=== PATIENT | female | born 1990 | race Caucasian/White ===

== ENCOUNTER 2017-04-06 07:54 | Emergency (ER) | payer OTHER, SELFPAY ==
[2017-04-06 07:59] VITALS: BP 106/66; PULSE 93; RESP 18; O2SAT 99; BMI 19.1
[2017-04-06 08:28] LABS: Microscopic, Urine URINE MICROSCOPIC (MICROSCOPIC)
[2017-04-06 08:34] LABS: Appearance,Urine CLEAR (Clear); Bilirubin,Urine Negative (Negative); Blood, Urine 3+ (Negative); Color,Urine YELLOW (Yellow); Glucose,Urine (UA) Negative (Negative); Ketones,Urine Negative (Negative); Leukocyte Esterase,Urine 1+ (Negative); Nitrate,Urine Negative (Negative); PH,Urine 6.5 (5.0-8.5); Protein,Urine 2+ (Negative); Specific Gravity, Urine 1.025 (1.005-1.030); Urobilinogen,Urine 0.2 EU/dl (0.2)
[2017-04-06 08:34] LABS: Basophils # 0.1 K/mm3 (0-0.2); Basophils % 0.6 % (0.1-2.0); Eosinophils # 0.2 K/mm3 (0.0-0.4); Eosinophils % 1.6 % (0.1-12.0); Hematocrit 38.7 % (37.0-47.0); Hemoglobin 12.7 g/dL (12.2-16.2); Lymphocytes # 1.8 K/mm3 (0.7-4.5); Lymphocytes % 19.5 K/mm3 (10-50); Mean Corpuscular HGB Conc 32.7 g/dL (31.8-35.4); Mean Corpuscular Hemoglobin 29.3 pg (27.0-31.2); Mean Corpuscular Volume 89.6 fl (81-99); Monocytes # 0.5 K/mm3 (0.1-1.0); Monocytes % 5.2 % (1.7-9.3); Neutrophils # 6.7 K/mm3 (1.8-7.8); Platelet Count 270 K/mm3 (142-424); Red Blood Count 4.32 M/mm3 (4.20-5.40); Red Cell Distribution Width 13.1 % (11.5-17.5); White Blood Count 9.1 K/mm3 (4.8-10.8)
[2017-04-06 08:43] LABS: Bacteria,Urine 2+ /lpf; Squamous Epithelial Cell,Urine 20-50 #/hpf (0-5)
[2017-04-06 08:53] LABS: Alanine Aminotransferase 24 U/L (12-78); Albumin Level 4.2 gm/dL (3.4-5.0); Albumin/Globulin Ratio 1.2 (1.1-1.8); Alkaline Phosphatase 68 U/L (46-116); Anion Gap 10.8 mEq/L (5-15); Aspartate Amino Transferase 13 U/L (15-37); Bilirubin,Total 0.2 mg/dL (0.2-1.0); Blood Urea Nitrogen 6 mg/dL (7-18); Calcium 8.7 mg/dL (8.5-10.1); Carbon Dioxide 30 mmol/L (21.0-32.0); Chloride 105 mmol/L (98-107); Creatinine Clearance Estimated 133 mL/min (0-300); Creatinine,Serum 0.49 mg/dL (0.55-1.02); Estimated Glomerular Filt Rate 151 ml/min (>60); GFR (African American) 183 ML/MIN (>60); Globulin 3.4 gm/dl (1.3-3.2); Glucose 90 mg/dL (74-106); Potassium 3.8 mmoL/L (3.5-5.1); Sodium 142 mmol/L (136-145); Total Protein,Serum 7.6 gm/dL (6.4-8.2)
--- NOTE | 2017-04-06 08:57 | US_ITS ---
US OB transvaginal: INDICATION: ITS.REASON: first trimesteric bleeding. ORDERING PHYSICIAN: Kaci Edmond MD PATIENT AGE: 26 years TECHNIQUE: ultrasound transabdominal scanning. COMPARISON: No previous relevant studies. FINDINGS: Uterus is retroverted. There is a intrauterine gestational sac which measures 2 cm. A small yolk sac is present however, a pole was not identified. According to the gestational sac size, average ultrasound age would be approximately 6 weeks 6 days. One would expect to see a pole at this time. Gestational sac has some irregularity is well. Right ovary is 4.3 x 2.2 cm and left ovary is 4.2 x 2 cm. There is a small amount fluid in the cul-de-sac. IMPRESSION: 1. No viable intrauterine gestation apparent. 2. Empty gestational sac containing a small yolk sac but NO pole consistent with blighted ovum.
--- NOTE | 2017-04-06 08:58 | HMH.EDUROGF ---
ED Disposition Clinical Impression: First trimester UTI (urinary tract infection) Qualifiers: Indwelling urinary catheter type: unspecified Encounter type: initial encounter Disposition: Home, Self-Care Condition on Discharge: Good Additional Instructions: I discussed with the patient's the above findings including her labs and ultrasound results. She is agreeable to see Dr. Donald immediately after the ED visit. She departed the ED in a hemodynamically stable condition. - Critical Care Critical Care Time: No Attestation: On 04/06/17, the high probability of a clinically significant, sudden or life threatening deterioration of the following system(s) required my full and direct attention, intervention and personal management. The time I documented below is in addition to time spent performing reported procedures but includes the following listed in this critical care notation. Medical Decision Making - Medical Records Medical records reviewed: Yes: I reviewed the patient's medical records. Vital Signs: 04/06/17 07:59 Pulse Rate [Right Brachial] 93 H Respiratory Rate 18 Blood Pressure [Right Arm] 106/66 Blood Pressure Mean [Right Arm] 79 Blood Pressure Source [Right Arm] Automatic Cuff Blood Pressure Position [Right Arm] Sitting 02 Sat by Pulse Oximetry 99 Oxygen Delivery Method Room Air - Lab Data Lab results reviewed: Yes: I reviewed the patient's lab results. Lab Results 04/06/17 08:20: WBC 9.1, RBC 4.32, Hgb 12.7, Hct 38.7, MCV 89.6, MCH 29.3, MCHC 32.7, RDW 13.1, Plt Count 270, MPV 7.0 L, Neut % (Auto) 73.0, Lymph % (Auto) 19.5, [place] % (Auto) 5.2, Eos % (Auto) 1.6, Baso % (Auto) 0.6, Neut # (Auto) 6.7, Lymph # (Auto) 1.8, [place] # (Auto) 0.5, Eos # (Auto) 0.2, Baso # (Auto) 0.1 04/06/17 08:20: Serum HCG, Qual Positive 04/06/17 08:20: Sodium 142, Potassium 3.8, Chloride 105, Carbon Dioxide 30, Anion Gap 10.8, BUN 6 L, Creatinine 0.49 L, Estimated Creat Clear 133, Estimated GFR 151, Est GFR ( Amer) 183, Glucose 90, Calcium 8.7, Total Bilirubin 0.2, AST 13 L, ALT 24, Alkaline Phosphatase 68, Total Protein 7.6, Albumin 4.2, Globulin 3.4 H, Albumin/Globulin Ratio 1.2 04/06/17 08:20: Blood Type O Negative 04/06/17 08:25: Urine Color Yellow, Urine Appearance Clear, Urine pH 6.5, Ur Specific [place] 1.025, Urine Protein 2+, Urine Glucose (UA) Negative, Urine Ketones Negative, Urine Blood 3+, Urine Nitrate Negative, Urine Bilirubin Negative, Urine Urobilinogen 0.2, Ur Leukocyte Esterase 1+ A, Urine RBC 3-5, Urine WBC 5-10, Ur Squamous Epith Cells 20-50, Urine Bacteria 2+ Result diagrams: 04/06/17 08:20 04/06/17 08:20 Orders (Tests/Meds): ED MEDICATIONS Generic Name Dose Route Start Last Admin Trade Name Freq PRN Reason Stop Dose Admin Sodium Chloride 1,000 mls @ 999 mls/hr 04/06/17 09:00 Sod Chloride 0.9% 1000ml Bag IV 04/06/17 10:00 .Q1H1M MINA Discontinued Medications Generic Name Dose Route Start Last Admin Trade Name Freq PRN Reason Stop Dose Admin Nitrofurantoin Macrocrystals 100 mg 04/06/17 09:04 Macrodantin 100mg Capsule PO 04/06/17 09:05 ONCE ONE ORDERS Category Date Time Status US OB <= 14 weeks fetus Stat Exams 04/06/17 08:57 Ordered Beta HCG, Quant [HCG,Quantitative] Stat Lab 04/06/17 09:29 Ordered Urine Culture Stat Micro 04/06/17 08:25 Received - Matthias Inquiry Pt receiving controlled substance: No Matthias was queried for this patient: No Medical Decision Making Narrative: Reviewing the patient labs I called Dr. Mariano Donald at the [facility] who informed me that he can see her immediately after the end of the ED visit. The ultrasound did not show heart rate . Dr. Allen believes that the did terminate she will need D&C. Will hold off using antibiotics for UTI until she is seen by him. Female Urogenital HPI - General Chief complaint: Vaginal Bleeding Stated complaint: approx 10 weeks
[2017-04-06 08:59] LABS: HCG Qualitative, Serum Positive (Negative)
--- NOTE | 2017-04-06 09:02 | ED_ITS ---
ED Disposition Clinical Impression: First trimester UTI (urinary tract infection) Qualifiers: Indwelling urinary catheter type: unspecified Encounter type: initial encounter Disposition: Home, Self-Care Condition on Discharge: Good Additional Instructions: I discussed with the patient's the above findings including her labs and ultrasound results. She is agreeable to see Dr. Donald immediately after the ED visit. She departed the ED in a hemodynamically stable condition. - Critical Care Critical Care Time: No Attestation: On 04/06/17, the high probability of a clinically significant, sudden or life threatening deterioration of the following system(s) required my full and direct attention, intervention and personal management. The time I documented below is in addition to time spent performing reported procedures but includes the following listed in this critical care notation. Medical Decision Making - Medical Records Medical records reviewed: Yes: I reviewed the patient's medical records. Vital Signs: 04/06/17 07:59 Pulse Rate [Right Brachial] 93 H Respiratory Rate 18 Blood Pressure [Right Arm] 106/66 Blood Pressure Mean [Right Arm] 79 Blood Pressure Source [Right Arm] Automatic Cuff Blood Pressure Position [Right Arm] Sitting 02 Sat by Pulse Oximetry 99 Oxygen Delivery Method Room Air - Lab Data Lab results reviewed: Yes: I reviewed the patient's lab results. Lab Results 04/06/17 08:20: WBC 9.1, RBC 4.32, Hgb 12.7, Hct 38.7, MCV 89.6, MCH 29.3, MCHC 32.7, RDW 13.1, Plt Count 270, MPV 7.0 L, Neut % (Auto) 73.0, Lymph % (Auto) 19.5, [place] % (Auto) 5.2, Eos % (Auto) 1.6, Baso % (Auto) 0.6, Neut # (Auto) 6.7 , Lymph # (Auto) 1.8, [place] # (Auto) 0.5, Eos # (Auto) 0.2, Baso # (Auto) 0.1 04/06/17 08:20: Serum HCG, Qual Positive 04/06/17 08:20: Sodium 142, Potassium 3.8, Chloride 105, Carbon Dioxide 30, Anion Gap 10.8, BUN 6 L, Creatinine 0.49 L, Estimated Creat Clear 133, Estimated GFR 151, Est GFR ( Amer) 183, Glucose 90, Calcium 8.7, Total Bilirubin 0.2, AST 13 L, ALT 24, Alkaline Phosphatase 68, Total Protein 7.6, Albumin 4.2, Globulin 3.4 H, Albumin/Globulin Ratio 1.2 04/06/17 08:20: Blood Type O Negative 04/06/17 08:25: Urine Color Yellow, Urine Appearance Clear, Urine pH 6.5, Ur Specific [place] 1.025, Urine Protein 2+, Urine Glucose (UA) Negative, Urine Ketones Negative, Urine Blood 3+, Urine Nitrate Negative, Urine Bilirubin Negative, Urine Urobilinogen 0.2, Ur Leukocyte Esterase 1+ A, Urine RBC 3-5, Urine WBC 5-10, Ur Squamous Epith Cells 20-50, Urine Bacteria 2+ Result diagrams: 04/06/17 08:20 04/06/17 08:20 Orders (Tests/Meds): ED MEDICATIONS Generic Name Dose Route Start Last Admin Trade Name Freq PRN Reason Stop Dose Admin Sodium Chloride 1,000 mls @ 999 mls/hr 04/06/17 09:00 Sod Chloride 0.9% 1000ml Bag IV 04/06/17 10:00 .Q1H1M MINA Discontinued Medications Generic Name Dose Route Start Last Admin Trade Name Freq PRN Reason Stop Dose Admin Nitrofurantoin Macrocrystals 100 mg 04/06/17 09:04 Macrodantin 100mg Capsule PO 04/06/17 09:05 ONCE ONE ORDERS Category Date Time Status US OB <= 14 weeks fetus Stat Exams 04/06/17 08:57 Ordered Beta HCG, Quant [HCG,Quantitative] Stat Lab 04/06/17 09:29 Ordered Urine Culture Stat Micro 04/06/17 08:25 Received
[2017-04-06 10:14] LABS: HCG,Quantitative 16503 mIU/mL
[2017-04-06 10:27] VITALS: BP 102/71; PULSE 69; RESP 18; O2SAT 97
== END 2017-04-06 10:29 | disposition home or self-care (01) ==
PROVIDERS: Emergency Provider Emergency Medicine
DX: O03.4 Incomplete spontaneous abortion without complication (principal); N39.0 Urinary tract infection, site not specified; Z88.0 Allergy status to penicillin; F17.210 Nicotine dependence, cigarettes, uncomplicated
CPT/HCPCS: 76830; 80053; 81001; 84702; 84703; 85025; 86900; 86901; 87086; 96365; 99284

== ENCOUNTER 2017-04-07 09:24 | Day surgery (SDC) | payer OTHER, SELFPAY ==
[2017-04-06 13:02] VITALS: BMI 19.8
[2017-04-07] VITALS (10 sets, daily range): BP systolic 99–112; BP diastolic 53–80; PULSE 63–81; RESP 16–20; TEMP 36.2–37; O2SAT 91–100
--- NOTE | 2017-04-07 10:48 | P.PN_ITS ---
[facility] Anesthesia Checklist - Patient Identification Patient Identification: Arm Band, Verbal (Name & ) - Structural Data Admitted From: Home Planned Operative Procedure/s: d and e Consent for Planned Operative Procedure(s) Verified: Yes Verified Documents: Surgical Consent - Chart Verification Results Verified: CBC, BMP - Additional verifications Patient : No Anesthesia Reactions: No Hx Blood Transfusions: No Blood Transfusion Reaction: No Cephalosporin Allergy: No Previous Colonoscopy: No - Cardiovascular Assessment Heart Sounds: S1 & S2 Pulse Strength: Baseline Pulse Rhythm: Regular Peripheral Edema: No - Airway Assessment C-Spine Mobility Assessed: Yes TMJ Mobility Assessed: Yes Dentition: Good Dentition - Neurological Assessment Level of Consciousness: Awake, Alert, Appropriate Hx Seizures: No Numbness or tingling in extremities: No - Anesthesia Plan Anesthesia Risk discussed: Yes ASA Class: I Anesthesia Type: General [facility] Anesthesia HX I have reviewed the patient's past medical history: Yes Medical History: Denies:: Cancer, Diabetes Mellitus Type 1, Diabetes Mellitus Type 2, MRSA Other Medical History: Denies: Blood Transfusion Reaction Amputation: No Fractures: No *Family Hx:: Hyperlipidemia, Hypertension, Stroke
--- NOTE | 2017-04-07 11:41 | P.OP_ITS ---
Date of procedure: 04/07/17 Pre-op Diagnosis:: Missed Post-op diagnosis:: same Procedure performed:: Dilation and evacuation with Hari suction Surgeon:: Mariano Allen MD WEBFOCUS DEVELOPER:: Jarrod Goodman Anesthesia: LMA Estimated blood loss (mL): 100 Clinical Note:: She is a 26-year-old 2 para 1 who is about 8 weeks gestational age. She had some spotting and was seen in the ER yesterday. And showed that she had a nonviable 8 week size fetus. As result of that she was offered dilation and evacuation with [place] suction. The risks and benefits of surgery were discussed with the patient prior to surgery. Operative findings:: She had an anteverted bulky uterus consistent with her gestational age. Operative note:: She was taken to the operating room where LMA anesthesia was found be adequate. She was prepped and draped in normal sterile fashion in the lithotomy position. A weighted speculum was placed in the vagina and the anterior lip of the cervix was grasped with a tenaculum. The cervix was dilated to 9 mm. Using a curved 9 mm [place] curette I evacuated the uterine contents. This is followed by gentle curettage. The patient tolerated the procedure well and was taken to the recovery room in excellent condition. All sponge and instrument counts were correct. The estimated blood loss was approximately 100 cc. Pathology: other Condition: stable Disposition: PACU Specimens:: Products of conception Complications:: None
--- NOTE | 2017-04-07 11:49 | HMH.ANESI ---
[facility] Anesthesia Record Part I Intake, IV Amount: 400 Estimated blood loss (mL): 100 Urine output (mL): 50 Blood Products used (#): none Blood Pressure: 99/58 SaO2: 91 Pulse Rate: 67 Respiratory Rate: 16 Temperature: 97.4 F Patient is:: Mask O2, Stable, Somnolent Stable to PACU at:: 11:48
--- NOTE | 2017-04-07 11:50 | HMH.ANESII ---
[facility] Anesthesia Record Part II Discharge Time: 12:18 Destination: Surgical Day Care (OP Surgery) PACU nurse assessment reviewed?: Yes Patient Condition:: Good Anesthesia Complications:: None
--- NOTE | 2017-04-07 11:59 | PC.NURSE ---
1148-REPORT RECEIVED FROM THONY HEADLEY/ADANRN
--- NOTE | 2017-04-07 12:19 | PC.NURSE ---
1215-DETAILED REPORT CALLED TO BETITO CORDON. PT EATING ORANGE POPSICLE W/OUT DIFFICULTY. DENIES NAUSEA OR PAIN. 1218-PT TRANSPORTED TO POST OP VIA STRETCHER W/RAILS UP AND LEFT IN CARE OF BETITO CORDON. BED LOCKED IN LOWEST POSITION. VSS. PT STABLE.
== END 2017-04-07 12:59 | disposition home or self-care (01) ==
LOC: OR 09:25
PROVIDERS: Visit Provider Nurse Practitioner Obstetrics & Gynecology
PROC: (CPT 59820; principal; 2017-04-07 11:00)
DX: O02.1 Missed abortion (principal)
CPT/HCPCS: 59820; 96374; J2405

== ENCOUNTER → 2017-10-20 10:14 | Outpatient (CLI) | payer OTHER, SELFPAY ==
[2017-10-20 10:41] LABS: Basophils % 0.4 % (0.1-2.0); Eosinophils # 0.2 K/mm3 (0.0-0.4); Hematocrit 34.7 % (37.0-47.0); Hemoglobin 11.5 g/dL (12.2-16.2); Lymphocytes # 2.2 K/mm3 (0.7-4.5); Mean Corpuscular HGB Conc 33.1 g/dL (31.8-35.4); Mean Corpuscular Hemoglobin 30.3 pg (27.0-31.2); Mean Corpuscular Volume 91.5 fl (81-99); Mean Platelet Volume 7.1 fl (7.4-10.4); Monocytes # 0.3 K/mm3 (0.1-1.0); Monocytes % 3.5 % (1.7-9.3); Neutrophils # 6.4 K/mm3 (1.8-7.8); Neutrophils % 70.1 % (37.0-80.0); Platelet Count 242 K/mm3 (142-424); White Blood Count 9.2 K/mm3 (4.8-10.8)
[2017-10-21 10:14] LABS: HIV Screen 4th Generation wRfx Non Reactive (Non Reactive); Hepatitis B Surface Antigen Negative (Negative); Hepatitis C Antibody 0.1 s/co ratio (0.0-0.9); Rubella Antibodies, IgG 1.48 index (Immune >0.99)
[2017-10-22 09:09] LABS: Rapid Plasma Reagin Ab Titer Non Reactive (NonRea<1:1)
== END ==
PROVIDERS: PCP Nurse Practitioner Family; Visit Provider Nurse Practitioner Obstetrics & Gynecology
DX: Z34.90 Encounter for supervision of normal pregnancy, unspecified, unspecified trimester (principal)
CPT/HCPCS: 36415; 85025; 86592; 86703; 86762; 86850; 87340; 87380; G0432

== ENCOUNTER → 2017-10-27 10:52 | Outpatient (CLI) | payer OTHER, SELFPAY ==
--- NOTE | 2017-10-27 10:57 | US_ITS ---
US OB /maternal detail: INDICATION: ITS.REASON: US OB- Dates- TRANSABDOMINAL- pt measuring 16 wks ORDERING PHYSICIAN: Mariano Allen MD PATIENT AGE: 27 years TECHNIQUE: ultrasound transabdominal scanning. COMPARISON: No previous relevant studies. FINDINGS: Single viable intrauterine gestation. Breech position. The placenta is anterior. No evidence of previa or production. There is heterogeneous decreased echogenicity along the superficial surface of the placenta. This is of questioned clinical significance. Multiple placental lakes are present as well. Consider follow-up to confirm integrity of the placenta. There is average amount fluid. The cervix appears satisfactory. Closed and measuring 3 cm in length. Complete survey performed and was unremarkable on the submitted images as in PACS. No discrete anomalies identified on survey imaging by technologist. Active fetus. Three-vessel cord with satisfactory umbilical cord insertion. 4- chamber heart noted. Survey of brain & ventricles. Face and neck survey unremarkable. Diaphragm and chest views unremarkable. Abdomen: Both kidneys noted and unremarkable. Stomach noted and satisfactory. Spine: Survey of the spine satisfactory with no anomalies identified nor imaged. Both arms and legs noted. Amniotic Fluid: Adequate. Maternal adnexa: No significant findings. Measurements: Average ultrasound age 20w2d. Gestational Age unknown. Estimated due date by ultrasound age 0103/14/2018. Estimated weight 324 grams. BPD = 20w5d OFD = 20w6d HC = 20w0d AC = 20w2d FL = 19w5d Growth Percentile= not calculated due to unknown established due date Heart Rate = 150 Cerebellum = 20w2d Humerus = 20w2d HC/AC is 1.17. CI is 78%. FL/BPD is 64%. FL/AC is 21%. IMPRESSION: Single live fetus in breech presentation with an average ultrasound age of 20 weeks and 2 days. No obvious anomalies. All parameters correlate. Placenta is anterior with heterogeneous echogenicity along its superficial surface and placental lakes. Consider follow-up to confirm stability.
== END ==
PROVIDERS: PCP Nurse Practitioner Family; Visit Provider Nurse Practitioner Obstetrics & Gynecology
DX: O26.841 Uterine size-date discrepancy, first trimester (principal)
CPT/HCPCS: 76811

== ENCOUNTER 2017-12-24 08:43 | Outpatient (CLI) | payer OTHER, SELFPAY | END 2017-12-24 12:00 | disposition home or self-care (01) | LOC: LAB 08:45 → ACC 11:34 → INF 11:42 | PROVIDERS: PCP Nurse Practitioner Obstetrics & Gynecology; Visit Provider Nurse Practitioner Obstetrics & Gynecology | DX: O09.899 Supervision of other high risk pregnancies, unspecified trimester (principal); Z34.90 Encounter for supervision of normal pregnancy, unspecified, unspecified trimester; Z67.91 Unspecified blood type, Rh negative | CPT/HCPCS: 36415; 96372; J2790 ==

== ENCOUNTER → 2018-02-11 09:52 | Outpatient (CLI) | payer OTHER, SELFPAY ==
--- NOTE | 2018-02-11 09:53 | US_ITS ---
US OB biophysical profile, U S OB follow up, US SD Ratio umbilcal artery: Indication: Small for gestational age ITS.REASON: US OB BPP Growth- SGA ORDERING PHYSICIAN: Mariano Allen MD PATIENT AGE: 27 years FINDINGS: The following parameters are obtained: Average ultrasound age is 34w2d. Estimated due date by ultrasound is 03/23/2018. Estimated weight is 2283. This is 10 percentile. BPD: 35w4d OFD: 34w3d HC: 34w4d AC: 34w0d FL: 32w5d heart rate: 138 bpm. HC/AC: 1.03 (0.93-1.11) Cephalic index: 82% (70-86%) FL/BPD: 72% (71-87%) FL/AC: 21% (20-24%) Amniotic fluid index: 14 cm Qualitative AFV: 2 breathing movements: 2 Gross body movements: 2 Tone: 2 Biophysical profile score: 8/8 Doppler evaluation of the umbilical artery: SD ratio: 2.7 Resistive index: 0.63 No obvious anomalies evident. Placenta: Anterior, GR 2-3 Cervix: Appears closed and measures 3 cm IMPRESSION: There is a single live fetus present which is in the [place] presentation with average ultrasound age of 34 weeks 2 days and an estimated weight 2283 g is 10th percentile. Biophysical profile 8/8. Normal amniotic fluid index of 14 cm. Unremarkable Doppler evaluation of the umbilical artery
== END ==
PROVIDERS: PCP Nurse Practitioner Obstetrics & Gynecology; Visit Provider Nurse Practitioner Obstetrics & Gynecology
DX: O36.5131 Maternal care for known or suspected placental insufficiency, third trimester, fetus 1 (principal)
CPT/HCPCS: 76816; 76819; 76820

== ENCOUNTER → 2018-02-17 16:54 | Outpatient (CLI) | payer OTHER, SELFPAY ==
[2018-02-17 19:41] LABS: Amphetamine/Metha Screen,Urine Negative ng/mL (<1000); Barbiturates Screen,Urine Negative ng/mL (<200); Benzodiazepines Screen,Urine Negative ng/mL (<200); Cannabinoid Screen,Urine Negative ng/mL (<50); Cocaine Screen,Urine Negative ng/mL (<300); Methadone Screen,Urine Negative ng/mL (<300); Opiate Screen,Urine Negative ng/mL (<300); Phencyclidine Screen,Urine Negative ng/mL (<25)
[2018-02-19 18:38] LABS: Buprenorphine, Urine Negative ng/mL (Cutoff=10)
== END ==
PROVIDERS: Visit Provider Nurse Practitioner Obstetrics & Gynecology
DX: Z34.90 Encounter for supervision of normal pregnancy, unspecified, unspecified trimester (principal)
CPT/HCPCS: 80305; 80307; 86403

== ENCOUNTER 2018-03-21 07:24 | Inpatient (IN) ==
[2018-03-21 08:44] LABS: Basophils # 0.1 K/mm3 (0-0.2); Basophils % 0.5 % (0.1-2.0); Eosinophils # 0.2 K/mm3 (0.0-0.4); Eosinophils % 1.5 % (0.1-12.0); Hematocrit 33.3 % (37.0-47.0); Hemoglobin 11.2 g/dL (12.2-16.2); Lymphocytes # 2.8 K/mm3 (0.7-4.5); Mean Corpuscular HGB Conc 33.6 g/dL (31.8-35.4); Mean Corpuscular Volume 92.3 fl (81-99); Monocytes # 0.6 K/mm3 (0.1-1.0); Monocytes % 4.5 % (1.7-9.3); Neutrophils # 9.8 K/mm3 (1.8-7.8); Neutrophils % 72.5 % (37.0-80.0); Platelet Count 290 K/mm3 (142-424); Red Blood Count 3.61 M/mm3 (4.20-5.40); Red Cell Distribution Width 13.4 % (11.5-17.5); White Blood Count 13.5 K/mm3 (4.8-10.8)
[2018-03-21 10:23] LABS: Microscopic, Urine URINE MICROSCOPIC (MICROSCOPIC)
[2018-03-21 10:29] LABS: Appearance,Urine CLOUDY (Clear); Bilirubin,Urine Negative (Negative); Blood, Urine 2+ (Negative); Color,Urine YELLOW (Yellow); Glucose,Urine (UA) Negative (Negative); Ketones,Urine Negative (Negative); Leukocyte Esterase,Urine TRACE (Negative); Protein,Urine Negative (Negative); Urobilinogen,Urine 0.2 EU/dl (0.2)
[2018-03-21 10:33] LABS: Amphetamine/Metha Screen,Urine Negative ng/mL (<1000); Barbiturates Screen,Urine Negative ng/mL (<200); Benzodiazepines Screen,Urine Negative ng/mL (<200); Cannabinoid Screen,Urine Negative ng/mL (<50); Cocaine Screen,Urine Negative ng/mL (<300); Methadone Screen,Urine Negative ng/mL (<300); Opiate Screen,Urine Negative ng/mL (<300); Phencyclidine Screen,Urine Negative ng/mL (<25)
[2018-03-21 10:37] LABS: Bacteria,Urine 3+ /lpf; Mucus,Urine 2+ /lpf
--- NOTE | 2018-03-21 15:08 | Progress Note ---
[facility] Anesthesia Checklist - Patient Identification Patient Identification: Arm Band - Structural Data Admitted From: Home Planned Operative Procedure/s: labor epidural Consent for Planned Operative Procedure(s) Verified: Yes Verified Documents: Surgical Consent, History and Physical - NPO Status Verified Time NPO: 00:00 - Additional verifications Anesthesia Reactions: No - Airway Assessment C-Spine Mobility Assessed: Yes (mp2) TMJ Mobility Assessed: Yes Dentition: Good Dentition - Neurological Assessment Level of Consciousness: Awake, Alert - Anesthesia Plan Anesthesia Risk discussed: Yes Anesthesia Plan: Verified ASA Class: II Anesthesia Type: Epidural [facility] History I have reviewed the patient's past medical history: Yes Medical History: Denies:: Cancer, Diabetes Mellitus Type 1, Diabetes Mellitus Type 2, MRSA, Seizures Have you ever received a pneumonia vaccine?: No Have you received a flu vaccine this season?: No Other Medical History: Denies: Blood Transfusion Reaction Other Surgeries: No: Amputation: No Fractures: No - *Social History Smoking Status: Current every day smoker Tobacco Type: cigarettes Alcohol Intake: never Substance Use Type: denies use Occupational Status: other *Family Hx:: Hypertension, Hyperlipidemia, Stroke Para: 1
--- NOTE | 2018-03-21 15:59 | History & Physical Report ---
OB - H&P: HPI Antepartum - History of Present Illness Chief complaint: Rupture of membranes History of present illness: 27 yo @ 41 wks presented with SROM around 8am. Irregular contractions but no vaginal bleeding. Normal movement. complicated by tobacco abuse, IUGR 10%, grade 2-3 placenta and Rh negative maternal status. [facility] History I have reviewed the patient's past medical history: Yes Medical History: Denies:: Cancer, Diabetes Mellitus Type 1, Diabetes Mellitus Type 2, MRSA Have you ever received a pneumonia vaccine?: No Have you received a flu vaccine this season?: No Other Surgeries: No: Amputation: No Fractures: No - *Social History Smoking Status: Current every day smoker Tobacco Type: cigarettes Alcohol Intake: never Substance Use Type: denies use Occupational Status: other *Family Hx:: Hypertension, Hyperlipidemia, Stroke Para: 1 Review of Systems - Review of Systems CONSTITUTIONAL: no fever/chills HEENT: no oral lesions PULMONARY: no shortness of breath or difficulty breathing CV: no racing heart, palpitations or chest pain ABD: no abdominal pain, N/V : + leakage of fluid and irregular contractions SKIN: no new rash or skin lesions EXT: no edema NEURO: no mental status changes PSYCH: no current anxiety/depression Meds Home Medications Medication Instructions Recorded Confirmed Type No Known Home Medications 03/21/18 03/21/18 History Allergies Allergy/AdvReac Type Severity Reaction Status Date / Time Penicillins Allergy Verified 03/18/18 11:20 OB - H&P: Exam - Physical Exam Vital signs: Temp Pulse Resp BP Pulse Ox 98.2 F 90 24 120/73 100 03/21/18 07:49 03/21/18 07:49 03/21/18 07:49 03/21/18 07:49 03/21/18 07:49 Narrative: CONSTITUTIONAL: no acute distress HEENT: mucous membranes moist PULMONARY: breathing unlabored without audible wheezes CV: no tachycardia or visible JVD; normal LE peripheral pulses ABD: soft, NT/ND, no guarding. Gravid uterus. : cervix 2/50/-2 SKIN: no visible rash or lesions HEME: no lymphadenopathy EXT: 1+ edema LEs NEURO: alert/oriented, no altered mental status PSYCH: appropriate mood and demeanor without visible anxiety/depression NST: Basline: 150 Variability: moderate Accelerations: yes Decelerations: no Impression: Reactive, Category 1 OB - Results - Labs Labs: Short CBC 03/21/18 Range/Units 08:25 WBC 13.5 H (4.8-10.8) K/mm3 Hgb 11.2 L (12.2-16.2) g/dL Hct 33.3 L (37.0-47.0) % Plt Count 290 (142-424) K/mm3 Urine 03/21/18 Range/Units 10:09 Urine Color Yellow (Yellow) Urine Appearance Cloudy (Clear) Urine pH 7.0 (5.0-8.5) Ur Specific [place] 1.020 (1.005-1.030) Urine Protein Negative (Negative) Urine Glucose (UA) Negative (Negative) OB - A/P Antepartum (1) Post-dates Current visit: Yes Status: Acute (2) Spontaneous rupture of membranes Current visit: Yes Status: Acute (3) IUGR (intrauterine growth restriction) Problem details: 10% Current visit: No Status: Acute (4) Abnormal placental ultrasound Problem details: Grade 2/3 Current visit: No Status: Acute (5) Rh negative status during Current visit: No Status: Acute (6) Tobacco smoking complicating Current visit: No Status: Acute - Additional Plan Additional Information:: Admit to Labor and Delivery Pitocin augmentation as needed Epidural for pain management at patient request Continuous monitoring Anticipate
--- NOTE | 2018-03-21 16:38 | Procedure Note ---
- Delivery Note Delivery Date:: 03/21/18 Delivery Time:: 16:34 Anesthesia Type: Epidural Was labor medically induced?: No Gestational age (weeks): 41 Infant delivered prior to 39 weeks?: No Gender: Female at 1 minute: 7 at 5 minutes: 9 LAC or MLE?: LAC (1st degree perineal, right periurethral) Delivery Procedure:: Spontaneous vaginal delivery of vigorous liveborn female infant over intact perineum. Apgars: 7 & 9 Delivery uncomplicated; no nuchal cord or shoulder dystocia with delivery placed immediately on maternal abdomen for nursing assessment & LINDSAY immediately after umbilical cord clamped/cut Placenta spontaneously expressed and examined; noted to be complete/intact Vulva, vagina, and cervix inspected; 1st degree perineal laceration reapproximated with 2-0 vicryl. Right periurethral laceration hemostatic; no repair. EBL: 300cc All sponge/needle/instrument counts correct at conclusion of procedure Disposition: Mom/baby stable to recovery in LDRP Placental Delivery Description: Spontaneous
[2018-03-21 21:12] VITALS: BP 115/77
[2018-03-22 06:02] LABS: Hematocrit 33.2 % (37.0-47.0); Hemoglobin 10.9 g/dL (12.2-16.2)
--- NOTE | 2018-03-22 06:22 | Progress Note ---
Internal Medicine - PN: Subj *Date: 03/22/18 *Time: 06:21 Interval history: This is day #1. The patient is afebrile. Vital signs stable. Abdomen soft. Lochia normal. Uterine fundus involuting well. Perineum normal. Nursing well. Impression: Stable. Exam Vital signs and Labs for Last 24 Hours: Temp Pulse Resp BP Pulse Ox 97.5 F L 67 18 115/77 98 03/21/18 19:49 03/21/18 19:49 03/21/18 19:49 03/21/18 19:49 03/21/18 19:49 Laboratory Results - last 24 hr 03/21/18 07:40: Membrane Rupture Positive A 03/21/18 08:25: WBC 13.5 H, RBC 3.61 L, Hgb 11.2 L, Hct 33.3 L, MCV 92.3, MCH 31.0, MCHC 33.6, RDW 13.4, Plt Count 290, MPV 7.0 L, Neut % (Auto) 72.5, Lymph % (Auto) 21.0, [place] % (Auto) 4.5, Eos % (Auto) 1.5, Baso % (Auto) 0.5, Neut # (Auto) 9.8 H, Lymph # (Auto) 2.8, [place] # (Auto) 0.6, Eos # (Auto) 0.2, Baso # (Auto) 0.1 03/21/18 08:25: Blood Type O Negative, Antibody Screen Negative 03/21/18 10:09: Urine Opiates Screen Negative, Urine Methadone Screen Negative, Ur Barbituates Screen Negative, Ur Phencyclidine Scrn Negative, Ur Amphetamines Screen Negative, U Benzodiazepines Scrn Negative, Urine Cocaine Screen Negative, U Marijuana (THC) Screen Negative 03/21/18 10:09: Urine Color Yellow, Urine Appearance Cloudy, Urine pH 7.0, Ur Specific [place] 1.020, Urine Protein Negative, Urine Glucose (UA) Negative, Urine Ketones Negative, Urine Blood 2+, Urine Nitrate Negative, Urine Bilirubin Negative, Urine Urobilinogen 0.2, Ur Leukocyte Esterase Trace, Urine WBC 5-10, Ur Squamous Epith Cells 3-5, Urine Bacteria 3+, Urine Mucus 2+ 03/22/18 05:40: Hgb 10.9 L, Hct 33.2 L I & O for Last 24 hours: Intake & Output 03/19/18 03/20/18 03/21/18 03/22/18 11:59 11:59 11:59 11:59 Weight 153 lb Assessment and Plan (1) Post-dates Current visit: Yes Status: Acute Category: Medical Code(s): O48.0 - Post- term (2) Spontaneous rupture of membranes Current visit: Yes Status: Acute Category: Medical (3) IUGR (intrauterine growth restriction) Problem details: 10% Current visit: No Status: Acute Category: Medical (4) Abnormal placental ultrasound Problem details: Grade 2/3 Current visit: No Status: Acute Category: Medical Code(s): O28.3 - Abnormal ultrasonic finding on screening of mother (5) Rh negative status during Current visit: No Status: Acute Category: Medical Code(s): O09.899 - Supervision of other high risk pregnancies, unspecified trimester; Z67.91 - Unspecified blood type, Rh negative (6) Tobacco smoking complicating Current visit: No Status: Acute Category: Medical Code(s): O99.330 - Smoking (tobacco) complicating , unspecified trimester
--- NOTE | 2018-03-23 09:17 | Discharge Summary ---
General - General Admission date:: 03/21/18 Discharge date: 03/23/18 HPI HPI: She is a 27-year-old 3 now para 2 aborta 1 who was 41+ weeks gestational age. She came in in early labor with ruptured membranes. Hospital Course Hospital Course: She progressed under labor epidural to full dilation and delivered spontaneously a liveborn female child at 4:14 PM in the afternoon of March 21, 2018. The lisa grey was a liveborn female child weighing 7 pounds 2 ounces and 19-1/2 inches long. She had Apgars of 7 at 1 minute and 9 at 5 minutes. She has done well and has remained afebrile throughout her hospitalization. She is eating and drinking and ambulating. She is breast- feeding. Her accounting lecturer Dr. White. She has O- blood and she has receive RhoGam. She is rubella immune and was group B streptococcus negative. She is discharged home to follow-up with me in approximately 2 weeks time. She will continue with her vitamins and iron. She will take over the counter analgesics for discomfort. Her condition on discharge is stable. Rhogam Administration: Given Objective Vital signs: Temp Pulse Resp BP Pulse Ox 97.5 F L 67 18 115/77 98 03/21/18 19:49 03/21/18 19:49 03/21/18 19:49 03/21/18 19:49 03/21/18 19:49 no acute distress Results Labs on day of discharge: Preliminary micro results at discharge 03/21/18 10:09 Urine Culture - Preliminary Urine,Catheterized NO GROWTH AFTER 24 HOURS DS: Diagnosis - Discharge Diagnosis (1) Post-dates Status: Acute (2) Spontaneous rupture of membranes Status: Acute (3) IUGR (intrauterine growth restriction) Status: Acute Problem details: 10% (4) Abnormal placental ultrasound Status: Acute Problem details: Grade 2/3 (5) Rh negative status during Status: Acute (6) Tobacco smoking complicating Status: Acute Discharge Plan - Patient Discharge Instructions ACTIVITY: No heavy lifting DIET: continue same diet Additional Instructions: No heavy lifting, no strenuous activity, nothing in the vagina for 6 weeks. Patient Instructions: Depression, Hemorrhage, Post Discharge Instructions - Follow up Plan Follow up with: Mariano Allen MD [Primary Care Provider] - Disposition: Home, Self-[facility] Medications: Home Medications Medication Instructions Recorded Confirmed Type No Known Home Medications 03/21/18 03/21/18 History Prescriptions/Medication Reconciliation: No Action No Known Home Medications
== END 2018-03-23 10:35 | disposition home or self-care (01) | DRG 807 ==
LOC: OBOUT 07:24 → OB 07:28
PROVIDERS: ADMIT Obstetrics & Gynecology; ATTEND Obstetrics & Gynecology
CPT/HCPCS: 36415; 59025; 80305; 81001; 84112; 85014; 85018; 85025; 85461; 86850; 87086; 94761; J2405; J2790

== ENCOUNTER 2020-04-22 20:55 | Emergency (ER) | payer MEDICAID, SELFPAY ==
[2020-04-22 21:07] VITALS: BP 110/67; PULSE 72; RESP 28; TEMP 36.5; O2SAT 100; BMI 19.5
[2020-04-22 21:18] LABS: Microscopic, Urine URINE MICROSCOPIC (MICROSCOPIC)
[2020-04-22 21:20] LABS: Appearance,Urine CLEAR (Clear); Bilirubin,Urine Negative (Negative); Blood, Urine Negative (Negative); Color,Urine YELLOW (Yellow); Glucose,Urine (UA) Negative (Negative); Ketones,Urine 1+ (Negative); Leukocyte Esterase,Urine Negative (Negative); Nitrate,Urine Negative (Negative); Protein,Urine 1+ (Negative); Urine Pregnancy, HCG Qual. Positive (Negative); Urobilinogen,Urine 0.2 EU/dl (0.2)
--- NOTE | 2020-04-22 21:24 | US_ITS ---
PROCEDURE: US OB TRANSVAGINAL CLINICAL INDICATION: abd/flank pain Abdominal pain mid abdomen common nausea and vomiting, positive test obtained on the evening of the ultrasound. COMPARISON: US OBBIO US OB biophysical profile from 02/11/2018 FINDINGS: An intrauterine gestational sac is present with a pole with a crown-rump length of 0.74cm correlating to gestational age of 6weeks 5days. heart tones are present with an FHR of 147bpm. Yolk sac is noted. The ovary is normal in size and appearance. Left ovary contains a probable corpus luteal cyst and is unremarkable in appearance. IMPRESSION: Viable intrauterine . Estimated gestational age of 6 weeks 5 days. Estimated due date by Ultrasound is 12/11/2020 Dictated by: Iman Shelley 04/23/2020 13:24 Iman Shelley in OV 04/23/2020 13:24
--- NOTE | 2020-04-22 21:25 | PC.NURSE ---
pt pos preg test contraindicated n correlation with ct of abd pevis
[2020-04-22 21:28] LABS: PH,Urine >= 9.0 (5.0-8.5)
[2020-04-22 21:30] LABS: Basophils % 0.2 % (0.1-2.0); Eosinophils # 0.2 K/mm3 (0.0-0.4); Hematocrit 44.5 % (37.0-47.0); Hemoglobin 14.8 g/dL (12.2-16.2); Lymphocytes # 0.9 K/mm3 (0.7-4.5); Lymphocytes % 5.2 % (10-50); Mean Corpuscular HGB Conc 33.3 g/dL (31.8-35.4); Mean Corpuscular Hemoglobin 29.4 pg (27.0-31.2); Mean Corpuscular Volume 88.4 fl (81-99); Mean Platelet Volume 7.6 fl (7.4-10.4); Monocytes # 0.4 K/mm3 (0.1-1.0); Monocytes % 2.1 % (1.7-9.3); Neutrophils # 16.5 K/mm3 (1.8-7.8); Neutrophils % 91.5 % (37.0-80.0); Platelet Count 308 K/mm3 (142-424); Red Blood Count 5.04 M/mm3 (4.20-5.40); Red Cell Distribution Width 13.4 % (11.5-17.5); White Blood Count 18.1 K/mm3 (4.8-10.8)
[2020-04-22 21:35] LABS: Bacteria,Urine 2+ /lpf; Squamous Epithelial Cell,Urine 20-50 #/hpf (0-5)
[2020-04-22 21:38] LABS: Chloride 100 mmol/L (98-107); Potassium 3.7 mmoL/L (3.5-5.1); Sodium 137 mmol/L (136-145)
[2020-04-22 21:40] LABS: Blood Urea Nitrogen 6 mg/dl (7-17); Creatinine Clearance Estimated 108 mL/min (50-200); Estimated Glomerular Filt Rate 117 ml/min (>60); GFR (African American) 142 ML/MIN (>60)
[2020-04-22 21:41] LABS: Alanine Aminotransferase 26 U/L (12-78); Albumin Level 5.5 g/dl (3.5-5.0); Alkaline Phosphatase 91 U/L (38-126); Anion Gap 17.7 mEq/L (5-15); Aspartate Amino Transferase 29 U/L (14-36); Bilirubin,Indirect 1.1 mg/dL (0.0-0.9); Bilirubin,Total 1.1 mg/dl (0.2-1.3); Calcium 10.6 mg/dl (8.4-10.2); Carbon Dioxide 23 mmol/L (22.0-30.0); Glucose 124 mg/dl (74-100); Total Protein,Serum 9.4 g/dl (6.3-8.2)
[2020-04-22 21:42] LABS: MANUAL DIFFERENTIAL MANUAL DIFFERENTIAL (MANUAL DIFF)
[2020-04-22 22:14] LABS: Lymphocytes % 6 % (10-50); Monocytes % 9 % (2-9); Neutrophils % 84 % (42-76); Platelet Estimate Normal; RBC Morphology Normal; Total Cells Counted 100
--- NOTE | 2020-04-22 23:23 | HMH.EDNVD ---
ED Disposition Clinical Impression: Qualifiers: Weeks of gestation: less than 8 weeks Qualified Code(s): Z3A.01 - Less than 8 weeks gestation of Disposition: Home, Self-Care Condition on Discharge: Good Instructions: DI for Nausea -- Adult Additional Instructions: call and make an appointment with dr slade RASMUSSEN. Referrals: Mariano Allen MD [Staff Physician] - PCP,No [Primary Care Provider] - - Critical Care Critical Care Time: No Attestation: On 04/22/20, the high probability of a clinically significant, sudden or life threatening deterioration of the following system(s) required my full and direct attention, intervention and personal management. The time I documented below is in addition to time spent performing reported procedures but includes the following listed in this critical care notation. Medical Decision Making - Medical Records Medical records reviewed: Yes: I reviewed the patient's medical records. - Matthias Inquiry Pt receiving controlled substance: No Vital Signs: 04/22/20 21:07 Temperature 97.7 F Temperature Source Temporal Artery Scan Pulse Rate [Right Brachial] 72 Respiratory Rate 28 H Blood Pressure [Right Arm] 110/67 Blood Pressure Mean [Right Arm] 81 Blood Pressure Source [Right Arm] Automatic Cuff Blood Pressure Position [Right Arm] Sitting 02 Sat by Pulse Oximetry 100 Oxygen Delivery Method Room Air - Lab Data Lab results reviewed: Yes: I reviewed the patient's lab results. Lab Results 04/22/20 21:05: Urine Color Yellow, Urine Appearance Clear, Urine pH >= 9.0 H, Ur Specific [place] 1.010, Urine Protein 1+, Urine Glucose (UA) Negative, Urine Ketones 1+, Urine Blood Negative, Urine Nitrate Negative, Urine Bilirubin Negative, Urine Urobilinogen 0.2, Ur Leukocyte Esterase Negative, Urine RBC None, Urine WBC 5-10, Ur Squamous Epith Cells 20-50, Urine Bacteria 2+ 04/22/20 21:05: Urine HCG, Qual Positive 04/22/20 21:20: WBC 18.1 H, RBC 5.04, Hgb 14.8, Hct 44.5, MCV 88.4, MCH 29.4, MCHC 33.3, RDW 13.4, Plt Count 308, MPV 7.6, Neut % (Auto) 91.5 H, Lymph % (Auto) 5.2 L, Frio % (Auto) 2.1, Eos % (Auto) 1.0, Baso % (Auto) 0.2, Neut # (Auto) 16.5 H, Lymph # (Auto) 0.9, Frio # (Auto) 0.4, Eos # (Auto) 0.2, Baso # (Auto) 0.0, Total Counted 100, Neutrophils % (Manual) 84 H, Band Neutrophils % 1.0, Lymphocytes % (Manual) 6 L, Monocytes % (Manual) 9, Platelet Estimate Normal, RBC Morphology Normal 04/22/20 21:20: Sodium 137, Potassium 3.7, Chloride 100, Carbon Dioxide 23, Anion Gap 17.7 H, BUN 6 L, Creatinine 0.60, Estimated Creat Clear 108, Estimated GFR 117, Est GFR ( Amer) 142, Glucose 124 H, Calcium 10.6 H, Total Bilirubin 1.1, Direct Bilirubin 0.0, Conjugated Bilirubin 0.0, Indirect Bilirubin 1.1 H, Unconjugated Bilirubin 1.0, AST 29, ALT 26, Alkaline Phosphatase 91, Total Protein 9.4 H, Albumin 5.5 H 04/22/20 21:20: HCG, Quant [id number] H 04/22/20 23:00: Blood Type O Negative, Antibody Screen Negative Result diagrams: 04/22/20 21:20 04/22/20 21:20 Orders (Tests/Meds): ED MEDICATIONS Generic Name Dose Route Start Last Admin Trade Name Freq PRN Reason Stop Dose Admin Sodium Chloride 1,000 mls @ 999 mls/hr 04/22/20 21:15 04/22/20 22:53 Sod Chlor 0.9% 1000ml Bag IV 04/22/20 22:15 999 mls/hr .Q1H1M MINA Administration Rho Immune Globulin 0 unit 04/22/20 22:42 Rho(D) Immune Globulin 1,500 Unit Syringe IM 05/22/20 22:41 NEEDED PRN For Rh Pre/ scrn resu Discontinued Medications Generic Name Dose Route Start Last Admin Trade Name Freq PRN Reason Stop Dose Admin Morphine Sulfate 4 mg 04/22/20 21:15 04/22/20 23:07 Morphine 4mg/Ml Syringe IV 04/22/20 21:16 Not Given ONCE ONE Ondansetron HCl 4 mg 04/22/20 21:15 04/22/20 23:07 Ondansetron 4mg/2ml Vial IV 04/22/20 21:16 Not Given ONCE ONE Promethazine HCl 12.5 mg 04/22/20 22:46 04/22/20 22:54 Promethazine Hcl 25mg/Ml 1ml Vial IV 04/22/20 22:47 12.5 m
[2020-04-22 23:31] LABS: HCG,Quantitative 20482 mIU/ml (0-5.42)
--- NOTE | 2020-04-22 23:52 | PC.NURSE ---
md on phone with dr june at this time. discussed plan of care.
[2020-04-23 00:27] VITALS: BP 142/70; PULSE 73; RESP 16; TEMP 36.6; O2SAT 98
== END 2020-04-23 00:29 | disposition home or self-care (01) ==
PROVIDERS: Emergency Provider Emergency Medicine
DX: O21.0 Mild hyperemesis gravidarum (principal); Z3A.01 Less than 8 weeks gestation of pregnancy; F17.210 Nicotine dependence, cigarettes, uncomplicated; Z88.0 Allergy status to penicillin
CPT/HCPCS: 36415; 76817; 80048; 80076; 81001; 81025; 84702; 85007; 85025; 87086; 96365; 96375; 99283

== ENCOUNTER → 2020-06-21 17:50 | Outpatient (CLI) | payer MEDICAID, SELFPAY ==
[2020-06-21 18:10] LABS: Basophils # 0.1 K/mm3 (0-0.2); Basophils % 0.9 % (0.1-2.0); Eosinophils # 0.2 K/mm3 (0.0-0.4); Eosinophils % 1.9 % (0.1-12.0); Hematocrit 41.2 % (37.0-47.0); Hemoglobin 13.5 g/dL (12.2-16.2); Lymphocytes # 2.7 K/mm3 (0.7-4.5); Lymphocytes % 31.7 % (10-50); Mean Corpuscular HGB Conc 32.7 g/dL (31.8-35.4); Mean Corpuscular Hemoglobin 29.6 pg (27.0-31.2); Mean Corpuscular Volume 90.4 fl (81-99); Mean Platelet Volume 7.3 fl (7.4-10.4); Monocytes # 0.4 K/mm3 (0.1-1.0); Monocytes % 4.2 % (1.7-9.3); Neutrophils # 5.2 K/mm3 (1.8-7.8); Neutrophils % 61.3 % (37.0-80.0); Platelet Count 269 K/mm3 (142-424); Red Blood Count 4.56 M/mm3 (4.20-5.40); Red Cell Distribution Width 13.9 % (11.5-17.5); White Blood Count 8.5 K/mm3 (4.8-10.8)
[2020-06-21 18:37] LABS: Chloride 101 mmol/L (98-107); Potassium 3.6 mmoL/L (3.5-5.1); Sodium 138 mmol/L (136-145)
[2020-06-21 18:40] LABS: Blood Urea Nitrogen 5 mg/dl (7-17); Estimated Glomerular Filt Rate 144 ml/min (>60); GFR (African American) 174 ML/MIN (>60)
[2020-06-21 18:41] LABS: Anion Gap 13.6 mEq/L (5-15); Calcium 9.6 mg/dl (8.4-10.2); Carbon Dioxide 27 mmol/L (22.0-30.0); Glucose 95 mg/dl (74-100); HCG Qualitative, Serum Negative (Negative)
[2020-06-21 19:07] LABS: Coronavirus 19 IgG Antibody Negative (Negative); Coronavirus 19 IgM Antibody Negative (Negative)
== END ==
PROVIDERS: Visit Provider Nurse Practitioner Obstetrics & Gynecology
DX: Z01.812 Encounter for preprocedural laboratory examination (principal); Z11.52 Encounter for screening for COVID-19; Z30.09 Encounter for other general counseling and advice on contraception
CPT/HCPCS: 36415; 80048; 84703; 85025; 86328

== ENCOUNTER 2020-06-24 06:10 | Day surgery (SDC) | payer MEDICAID, SELFPAY ==
[2020-06-21 14:36] VITALS: BMI 18.9
[2020-06-24] VITALS (11 sets, daily range): BP systolic 101–116; BP diastolic 46–86; PULSE 59–85; RESP 15–18; TEMP 36.5–42.7; O2SAT 96–100
--- NOTE | 2020-06-24 08:21 | P.OP_ITS ---
Date of procedure: 06/24/20 Pre-op Diagnosis:: Desire for sterilization Post-op Diagnosis:: Desire for sterilization Procedure performed:: Laparoscopic bilateral salpingectomy Surgeon:: Mariano Allen MD OPEN HEARTH FURNACE OPERATOR HELPER:: Juan David Gutiérrez Anesthesia: GETA Estimated blood loss (mL): 25 Clinical Note:: She is a 30-year-old lady who expressed desire for sterilization. The risks and benefits as well as the irreversibility of bilateral salpingectomy were discussed with the patient prior to surgery. Operative findings:: She had a normal-appearing anteverted uterus. The ovaries and tubes appeared normal. The upper abdomen appeared normal. The appendix was visualized and appeared normal. It was however slightly dilated. There was no evidence of appendicitis. There is no evidence of erythema. The rest the pelvis appeared completely normal. Operative note:: She was taken to the operating room where general anesthesia was found be adequate. She was prepped and draped in normal sterile fashion in the semilithotomy position. A weighted speculum was placed in the vagina and the anterior lip of the cervix was grasped with a tenaculum. I then inserted a Kaylie uterine manipulator into the cervical os. The balloon was then insufflated. I changed gloves and injected 10 cc of 0.5% ropivacaine around her umbilicus and made a small incision within the umbilicus. I inserted a Veress needle into the abdominal cavity. The peritoneal cavity was then insufflated with carbon dioxide gas to a pressure of 20 mmHg. I then inserted a 5 millimeter trocar under direct vision. I injected through and through the pubic hairline, made a small incision here and inserted an 8 mm trocar under direct vision. I identified the inferior epigastric artery on the left side, went lateral to these and injected through and through. I then placed a 5 mm trocar here under direct vision. The pelvis and upper abdomen were then inspected and the findings were as previously dictated. I grasped the right tube at the cornua and using harmonic scalpel on coagulation mode I cut through the tube. I then grasped the distal tube and using harmonic scalpel cut along the mesosalpinx. The tube was removed through 8 mm trocar site. This was similarly performed on the patient's left side. I then injected 30 cc of 0.5% ropivacaine into the pelvis. After assuring hemostasis the gas was let out of the abdomen and hemostasis was once again assured. The abdomen was then reinsufflated. The secondary trochars were removed under direct vision. The gas was let out her abdomen. The primary trocar was then removed. The 8 mm trocar site was closed deeply with 2-0 Vicryl suture followed by subcuticular 4-0 Monocryl suture. The 5 mm trocar sites were closed with subcuticular 4-0 Monocryl. Sterile dressings were applied. The patient tolerated the procedure well and was taken to the recovery room in excellent condition. All sponge instrument and needle counts were correct. The estimated blood loss was less than 25 cc. Condition: stable Disposition: PACU Specimens:: Bilateral fallopian tubes Complications:: None
--- NOTE | 2020-06-24 08:23 | P.PN_ITS ---
[facility] Anesthesia Checklist - Patient Identification Patient Identification: Arm Band - Structural Data Admitted From: Home Planned Operative Procedure/s: laparoscopic bilateral salpingectomy Consent for Planned Operative Procedure(s) Verified: Yes Verified Documents: Surgical Consent, History and Physical - NPO Status Verified Time NPO: 00:00 - Additional verifications Anesthesia Reactions: No Hx Blood Transfusions: No Blood Transfusion Reaction: No - Airway Assessment C-Spine Mobility Assessed: Yes (mp2) TMJ Mobility Assessed: Yes Dentition: Good Dentition - Neurological Assessment Level of Consciousness: Awake, Alert - Anesthesia Plan Anesthesia Risk discussed: Yes Anesthesia Plan: Verified ASA Class: II Anesthesia Type: General [facility] History I have reviewed the patient's past medical history: Yes Medical History: Denies:: Cancer, Diabetes Mellitus Type 1, Diabetes Mellitus Type 2, Internal Pacemaker, MRSA, Seizures *Have you ever received a pneumonia vaccine?: No *Have you received a flu vaccine this season?: No Other Medical History: Denies: Blood Transfusion Reaction Anesthesia experience/problems:: nac Laterality Cases: Bilateral: Tonsillectomy Other Surgeries: Yes: Other. No: , Pacemaker Amputation: No Fractures: No - *Social History Last grade of school completed: Advanced degree Smoking Status: Current every day smoker Tobacco Type: cigarettes # Packs/Day (cigarettes): 1 Alcohol Intake: never Substance Use Type: denies use *Occupational Status:: unemployed Housing: house Household Members: significant other *Travel in the last 8 weeks: None Family Hx:: Hypertension, Hyperlipidemia, Stroke CAN STRIPER history: Spontaneous , Therapeutic
--- NOTE | 2020-06-24 08:24 | HMH.ANESI ---
[facility] Anesthesia Record Part I Intake, IV Amount: 1,000 Estimated blood loss (mL): 25 Urine output (mL): 100 Blood Pressure: 111/53 SaO2: 97 Pulse Rate: 85 Respiratory Rate: 16 Temperature: 98.8 F Patient is:: Drowsy, Stable Stable to PACU at:: 08:15
--- NOTE | 2020-06-24 16:20 | HMH.ANESII ---
[facility] Anesthesia Record Part II Discharge Time: 08:45 Destination: Surgical Day Care (OP Surgery) PACU nurse assessment reviewed?: Yes Patient Condition:: Good Anesthesia Complications:: None Swallowing reflex intact?: Yes Cyanosis?: No Blood Pressure: 106/68 Pulse Rate: 73 Temperature: 98.8 F Mental Status: Alert & Oriented Pain level:: 0 Nausea and/or vomitting:: None Intake, IV Amount: 0
== END 2020-06-24 09:16 | disposition home or self-care (01) ==
LOC: OR 06:12
PROVIDERS: Visit Provider Nurse Practitioner Obstetrics & Gynecology
PROC: (CPT 58661; principal; 2020-06-24 07:30)
DX: Z30.2 Encounter for sterilization (principal); Z72.0 Tobacco use; Z82.3 Family history of stroke; Z82.49 Family history of ischemic heart disease and other diseases of the circulatory system; Z83.438 Family history of other disorder of lipoprotein metabolism and other lipidemia
CPT/HCPCS: 58661; 96374; J2405; J2710

== ENCOUNTER 2023-01-28 13:31 | Emergency (ER) | payer OTHER, MEDICAID, SELFPAY ==
[2023-01-28] VITALS (9 sets, daily range): BP systolic 86–132; BP diastolic 45–83; PULSE 69–87; RESP 15–24; TEMP 36.7–36.9; O2SAT 97–100; BMI 17.7
--- NOTE | 2023-01-28 13:42 | XR_ITS ---
PROCEDURE INFORMATION: Exam: XR Chest Exam date and time: 01/28/2023 2:22 PM Age: 32 years old Clinical indication: Shortness of breath and other: Vomiting; Additional info: SOA, vomiting. Smoker TECHNIQUE: Imaging protocol: Radiologic exam of the chest. Views: 1 view. COMPARISON: No relevant prior studies available. FINDINGS: Lungs: Lungs are clear. No consolidation. Symmetric nipple shadows noted over the lower chest. Pleural spaces: No pleural effusion. No pneumothorax. Heart/Mediastinum: Cardiomediastinal silhouette is normal. Bones/joints: No acute abnormality. IMPRESSION: No acute findings.
--- NOTE | 2023-01-28 13:47 | HMH.EDGENADL ---
Discharge Plan Disposition Patient Disposition: Home, Self-Care Condition: Good Prescriptions Prescriptions: New promethazine 12.5 mg tablet 12.5 mg PO TID PRN (Reason: allergy symptoms) 5 Days Qty: 15 0RF Rx Instructions: 3 doses during day; last dose no later than 4 hr before bedtime No Action oxycodone-acetaminophen 1 EACH tablet 1 tab PO Q4-6H PRN (Reason: Severe Pain) Qty: 20 0RF Referrals Follow up/Referrals: Provider,Referral, MD [Primary Care Provider] - See instructions Clinical Impressions Clinical Impression: Nausea and vomiting Instructions Patient Instructions: DI for Vomiting -- Adult Discharge ED Provider: Tereso Jaramillo General Adult HPI <Cindy Walker DO - Last Filed: 01/28/23 14:55> General Chief complaint: Abdominal Pain Stated complaint: vomiting Time Seen by Provider: 01/28/23 13:39 History of Present Illness HPI narrative: This patient is a 32-year-old female who denies significant past medical history presented to the emergency department for evaluation with concern for intractable nausea, vomiting, and headache that started last night around 11 PM. She states that the vomiting started first, and then she became dehydrated which is part of the headache. She also complains that it feels like she cannot breathe and she cannot get comfortable no matter how she lies down. She denies any specific abdominal pain. Emesis is nonbloody nonbilious. No changes in bowel movements, urinary symptoms, or other concerns noted at this time. Related Data Previous Rx's Medication Instructions Recorded oxycodone-acetaminophen 5 mg-325 1 tab PO Q4-6H PRN Severe Pain #20 06/24/20 mg tablet tabs promethazine 12.5 mg tablet 12.5 mg PO TID PRN allergy 01/28/23 symptoms 5 days #15 tabs Allergies Allergy/AdvReac Type Severity Reaction Status Date / Time Penicillins Allergy Verified 07/08/20 14:14 PFS <Cindy Walker DO - Last Filed: 01/28/23 14:55> [facility] Disclaimer: The information contained in this section may have been updated after the patient was seen, as this information can be updated by other users. Social History Smoking Status: Current every day smoker tobacco type: cigarettes packs per day: 1 alcohol intake: never substance use type: denies use current occupational status: unemployed Travel in the last 8 weeks: None household members: significant other housing: house current occupational exposures/hazards: No caffeine: Yes <Cindy Walker DO - Last Filed: 01/28/23 14:55> ROS Obtained: Yes All systems reviewed & no additional complaints except as documented Physical Exam <Cindy Walker DO - Last Filed: 01/28/23 14:55> General General appearance: alert and anxious Comment: Writhing around on the bed, tearful Head Head exam: atraumatic and normocephalic Eye Eye exam: Present normal appearance, PERRL and EOMI ENT ENT exam: Present normal exam, normal oropharynx, mucous membranes moist and normal external ear exam Neck Neck exam: Present normal inspection, full ROM and trachea midline; Absent tenderness Chest Chest inspection: Present normal inspection and symmetric chest wall rise; Absent tenderness Respiratory Respiratory exam: Present normal lung sounds bilaterally; Absent respiratory distress, wheezes, stridor or accessory muscle use Cardiovascular Cardiovascular exam: Present regular rate and normal rhythm Abdominal Exam Abdominal exam: Present soft; Absent distention, tenderness, guarding, rebound or rigidity Extremities Exam Extremities exam: Present normal inspection, full ROM and normal capillary refill; Absent tenderness or edema Back Exam Back exam: Present normal inspection and full ROM; Absent tenderness Neurological Exam Neurological exam: Present alert, oriented X3, CN II-XII intact and normal gait; Absent motor sensory deficit Psychiatric Psychiatric exam: Present n
--- NOTE | 2023-01-28 13:48 | ECG_ITS ---
APPROVED REPORT Exam: Resting ECG HR:97 bpm ECG Measurements Heart Rate 97 AXES GA 164 P 75 QRSd 90 QRS 91 QT 349 T 37 QTc 404 Conclusion SINUS RHYTHM BORDERLINE RIGHT AXIS DEVIATION [QRS AXIS > 90] NONSPECIFIC T-WAVE ABNORMALITY BORDERLINE ECG UNCONFIRMED REPORT Electronically signed by : Jarrod Loving MD 01/29/2023 08:53:09
[2023-01-28 14:12] LABS: Alanine Aminotransferase 30 U/L (12-78); Albumin Level 5.1 g/dl (3.5-5.0); Albumin/Globulin Ratio 1.6 (1.1-1.8); Alkaline Phosphatase 97 U/L (38-126); Anion Gap 15.6 mEq/L (5-15); Aspartate Amino Transferase 37 U/L (14-36); Bilirubin,Total 1.1 mg/dl (0.2-1.3); Blood Urea Nitrogen 11 mg/dl (7-17); Calcium 9.2 mg/dl (8.4-10.2); Carbon Dioxide 23 mmol/L (22.0-30.0); Chloride 101 mmol/L (98-107); Creatinine Clearance Estimated 105 mL/min (50-200); Estimated Glomerular Filt Rate 115 ml/min (>60); GFR (African American) 139 ML/MIN (>60); Globulin 3.1 g/dL (1.3-3.2); Glucose 115 mg/dl (74-100); Lipase 83 U/L (23-300); Potassium 3.6 mmoL/L (3.5-5.1); Sodium 136 mmol/L (136-145); Total Protein,Serum 8.2 g/dl (6.3-8.2)
[2023-01-28 14:15] LABS: Basophils % 0.2 % (0.1-2.0); Eosinophils # 0.2 K/mm3 (0.0-0.4); Eosinophils % 1.1 % (0.1-12.0); Hematocrit 44.7 % (37.0-47.0); Hemoglobin 15.3 g/dL (12.2-16.2); Lymphocytes # 0.7 K/mm3 (0.7-4.5); Lymphocytes % 4.7 % (10-50); Mean Corpuscular HGB Conc 34.2 g/dL (31.8-35.4); Mean Corpuscular Hemoglobin 30.9 pg (27.0-31.2); Mean Corpuscular Volume 90.5 fl (81-99); Mean Platelet Volume 8.2 fl (7.4-10.4); Monocytes # 0.4 K/mm3 (0.1-1.0); Monocytes % 2.6 % (1.7-9.3); Neutrophils # 12.9 K/mm3 (1.8-7.8); Neutrophils % 91.2 % (37.0-80.0); Platelet Count 292 K/mm3 (142-424); Red Blood Count 4.94 M/mm3 (4.20-5.40); Red Cell Distribution Width 13.4 % (11.5-17.5); White Blood Count 14.1 K/mm3 (4.8-10.8)
[2023-01-28 14:18] LABS: HCG Qualitative, Serum Negative (Negative); MANUAL DIFFERENTIAL MANUAL DIFFERENTIAL (MANUAL DIFF)
[2023-01-28 15:15] LABS: Coronavirus 19, PCR Not Detected (NotDetected); Influenza A, PCR Not Detected (NotDetected); Influenza B, PCR Not Detected (NotDetected)
[2023-01-28 16:00] LABS: Lymphocytes % 9 % (10-50); Neutrophils % 91 % (42-76); Platelet Estimate Normal; RBC Morphology Normal; Total Cells Counted 100
[2023-01-28 16:03] LABS: Microscopic, Urine URINE MICROSCOPIC (MICROSCOPIC)
[2023-01-28 16:04] LABS: Appearance,Urine CLEAR (Clear); Blood, Urine Negative (Negative); Color,Urine YELLOW (Yellow); Glucose,Urine (UA) Negative (Negative); Ketones,Urine 3+ (Negative); Leukocyte Esterase,Urine Negative (Negative); Nitrate,Urine Negative (Negative); Protein,Urine 1+ (Negative)
--- NOTE | 2023-01-28 16:10 | PC.NURSE ---
Pt ambulatory to bathroom and back to bed. No other needs voiced at this time. Call light remains within reach.
[2023-01-28 16:13] LABS: Bilirubin,Urine 1+ (Negative)
[2023-01-28 16:14] LABS: Strep Scrn Group A (Rapid) Negative (Negative)
[2023-01-28 16:21] LABS: Bacteria,Urine Trace /lpf; WBC,Urine Occasional #/hpf (0-3)
== END 2023-01-28 17:38 | disposition home or self-care (01) ==
PROVIDERS: Emergency Medicine; Emergency Provider Emergency Medicine
DX: R11.2 Nausea with vomiting, unspecified (principal); R51.9 Headache, unspecified; F17.210 Nicotine dependence, cigarettes, uncomplicated
CPT/HCPCS: 71045; 80053; 81001; 83690; 84703; 85007; 85025; 87430; 87636; 93005; 96361; 96374; 96375; 99285; J0131; J1790

== ENCOUNTER 2024-02-08 07:35 | Emergency (ER) | payer OTHER, SELFPAY ==
[2024-02-08] VITALS (7 sets, daily range): BP systolic 106–114; BP diastolic 62–89; PULSE 98–125; RESP 13–15; TEMP 36.7–37; O2SAT 97–99
--- NOTE | 2024-02-08 07:36 | PC.NURSE ---
heart rate 150
--- NOTE | 2024-02-08 07:50 | XR_ITS ---
FINAL REPORT CLINICAL HISTORY: prod cough fever, L sided posterio chest wall pain COMPARISON: None FINDINGS: Two views of the chest were obtained. The heart size and pulmonary vascularity are within normal limits. The mediastinum is normal. There is a posterior left lower lobe opacity, pneumonia or atelectasis. There is no pneumothorax. The bony thorax is intact. IMPRESSION: Posterior left lower lobe opacity, pneumonia or atelectasis. Reviewed, Interpreted and Dictated by Chepe Wayne III, MD Transcribed by Amanda Pabon Authenticated and [facility]
[2024-02-08] MEDS: KETOROLAC 30MG/ML VIAL 15 MG IV (08:02)
[2024-02-08] MEDS: 0.9 % SODIUM CHLORIDE 1000ML 1,000 ML 999 ML IV (08:02)
[2024-02-08] MEDS: ONDANSETRON 4MG/2ML VIAL 4 MG IV (08:02)
--- NOTE | 2024-02-08 08:07 | ED_ITS ---
Discharge Plan Disposition Patient Disposition: Home, Self-Care Prescriptions Prescriptions: New cefdinir 300 mg capsule 300 mg PO BID 6 Days Qty: 12 0RF azithromycin 500 mg tablet 500 mg PO DAILY 2 Days Qty: 2 0RF Rx Instructions: start on day 2 of therapy No Action promethazine 12.5 mg tablet 12.5 mg PO TID PRN (Reason: allergy symptoms) 5 Days Qty: 15 0RF Rx Instructions: 3 doses during day; last dose no later than 4 hr before bedtime oxycodone-acetaminophen 1 EACH tablet 1 tab PO Q4-6H PRN (Reason: Severe Pain) Qty: 20 0RF Referrals Follow up/Referrals: Provider,Referral, MD [Primary Care Provider] - See instructions Activity Restrictions/Add. Instructions Additional Instructions/Restrictions: Call your family doctor to establish care for this visit to the emergency department and schedule follow-up within 48 hours to ensure improvement. If you have any worsening of your condition or any other concerning signs or symptoms, return to the emergency department or your primary care doctor for further evaluation. Take Tylenol 1000 mg every 6 hours (4 times daily) and ibuprofen 400 mg every 6 hours (4 times daily) as needed with food and water to prevent GI upset and kidney damage. Cefdinir twice daily for the next 6 days, azithromycin once daily for the next 2 days. Clinical Impressions Clinical Impression: Lobar pneumonia Stand Alone Forms Stand Alone Forms: Work/School Release Print Language Print Language: Togolese Discharge ED Provider: Arias Dash General Adult HPI General Chief complaint: PAIN Stated complaint: head /chest congestion back pain Time Seen by Provider: 02/08/24 07:42 Mode of Arrival: Wheelchair Source of Information: Patient Limitations: No Limitations Description of Symptoms (Recalled from ER Triage Doc. by RN): pt presents to ED with c/o left lower back pain, chest congestion. back pain began two days ago. chest congestion ongoing for the past week. pt reports exposure to bronchitis. History of Present Illness HPI narrative: Please note that above description of symptoms, in this electronic medical record under categorization of recalled from ER triage doctor by RN are reflective of an initial nursing assessment, however, is not reflective of my full history and physical exam that was personally taken and clarified. Consequentially, this preceding description of symptoms, which may include the patient's categorized chief complaint in the EMR, do not reflect my personal clinical impression, and the ultimate description of history of present illness and patient stated complaints should be deferred to this section of the note. Unless stated otherwise or congruent with this section of the note, additional signs, symptoms, or incongruence should be interpreted as inaccurate with my clinical impression. Related Data Previous Rx's ?Medication ?Instructions ?Recorded oxycodone-acetaminophen 5 mg-325 1 tab PO Q4-6H PRN Severe Pain #20 06/24/ mg tablet tabs promethazine 12.5 mg tablet 12.5 mg PO TID PRN allergy 01/28/23 symptoms 5 days #15 tabs azithromycin 500 mg tablet 500 mg PO DAILY 2 days #2 tabs 02/08/24 cefdinir 300 mg capsule 300 mg PO BID 6 days #12 caps 02/08/24 Allergies Allergy/AdvReac Type Severity Reaction Status Date / Time Penicillins Allergy Verified 07/08/20 14:14 [facility] Disclaimer: The information contained in this section may have been updated after the patient was seen, as this information can be updated by other users. Social History Smoking Status: Current every day smoker tobacco type: cigarettes packs per day: 1 alcohol intake: never substance use type: denies use current occupational status: unemployed Travel in the last 8 weeks: None household members: significant other housing: house current occupational exposures/hazards: No caffeine: Yes Other Medical History Have you received the Flu Vaccine for this season: No Have you received the Pneumonia Vaccine: No ROS Obtained: Yes All systems reviewed & no additional complaints except as documented Physical Exam General General appearance: alert Head Head exam: atraumatic and normocephalic Eye Eye exam: Present normal appearance, PERRL and EOMI Neck Neck exam: Present normal inspection, full ROM and trachea midline Respiratory Respiratory exam: Present normal lung sounds bilaterally and other (tachypneic); Absent respiratory distress, wheezes, stridor, accessory muscle use or prolonged expiratory phase Cardiovascular Cardiovascular exam: Present other (Pulses equal symmetric in upper and lower extremities) Abdominal Exam Abdominal exam: Present soft; Absent distention, tenderness, guarding, rebound, rigidity or pulsatile mass Extremities Exam Extremities exam: Absent edema Neurological Exam Neurological exam: Present alert, oriented X3 and CN II-XII intact; Absent motor sensory deficit Skin Skin exam: Present warm and dry; Absent diaphoresis or erythema Medical Decision Making Medical Records Medical records reviewed: Yes I reviewed the patient's medical records. Screening: Per USPSTF and CDC recommendations, given the prevalence of disease in our region, it is our hospital?s policy to screen for HIV and viral Hepatitis for all patients aged 18 and over and those with ongoing risk factors. Matthias Inquiry Pt receiving controlled substance: No Matthias was queried for this patient: No Vital Signs: 02/08/24 07:36 02/08/24 07:40 02/08/24 07:45 Temperature 98.6 F Temperature Source Oral Pulse Rate 117 H 108 H Pulse Rate [Left Radial] 125 H Respiratory Rate 15 Blood Pressure 114/69 Blood Pressure [Right Arm] 114/89 Blood Pressure Mean [Right Arm] 97 02 Sat by Pulse Oximetry 98 97 98 Oxygen Delivery Method Room Air Room Air Room Air 02/08/24 08:05 02/08/24 08:30 02/08/24 08:44 Temperature Temperature Source Pulse Rate 121 H 98 H 110 H Pulse Rate [Left Radial] Respiratory Rate Blood Pressure 108/78 L 106/76 L 107/62 L Blood Pressure [Right Arm] Blood Pressure Mean [Right Arm] 02 Sat by Pulse Oximetry 98 99 97 Oxygen Delivery Method Room Air Room Air Lab Data Lab Results 02/08/24 07:58: WBC 24.3 H*, RBC 4.26, Hgb 12.7, Hct 37.1, MCV 87.0, MCH 29.7, MCHC 34.1, RDW 13.6, Plt Count 227, MPV 7.8, Neut % (Auto) 93.0 H, Lymph % (Auto) 2.8 L, [place] % (Auto) 3.5, Eos % (Auto) 0.4, Baso % (Auto) 0.3, Neut # (Auto) 22.6 H, Lymph # (Auto) 0.7, [place] # (Auto) 0.8, Eos # (Auto) 0.1, Baso # (Auto) 0.1, Sodium 132 L, Potassium 3.6, Chloride 99, Carbon Dioxide 26, Anion Gap 10.6, BUN 7, Creatinine 0.50 L, Estimated Creat Clear 128, Estimated GFR 141, Est GFR ( Amer) 171, Glucose 120 H, Calcium 9.1, Total Bilirubin 1.1, AST 25, ALT 22, Alkaline Phosphatase 71, Total Protein 7.4, Albumin 4.4, Globulin 3.0, Albumin/Globulin Ratio 1.5 02/08/24 07:58 02/08/24 07:58 Orders (Tests/Meds): ED MEDICATIONS Generic Name Dose Route Start Last Admin Trade Name Marcos PRN Reason Stop Dose Admin Sodium Chloride 10 ml 02/08/24 07:50 Sodium Chloride 0.9% 10ml Flush Syringe IV 03/09/24 07:49 NEEDED PRN Maintain IV Site Discontinued Medications Generic Name Dose Route Start Last Admin Trade Name Marcos PRN Reason Stop Dose Admin Azithromycin 500 mg 02/08/24 08:36 02/08/24 08:50 Azithromycin 250mg Tablet PO 02/08/24 08:37 500 mg ONCE ONE Administration Dexamethasone 10 mg 02/08/24 08:08 02/08/24 08:09 Dexamethasone 4mg Tablet PO 02/08/24 08:09 10 mg ONCE ONE Administration Sodium Chloride 1,000 mls @ 999 mls/hr 02/08/24 07:50 02/08/24 08:02 Sod Chlor 0.9% 1000ml Bag IV 02/08/24 08:50 999 mls/hr .Q1H1M ONE Administration Ceftriaxone Sodium 2 gm/ 100 mls @ 200 mls/hr 02/08/24 08:36 02/08/24 08:49 Sodium Chloride IV 02/08/24 09:05 200 mls/hr ONCE ONE Administration Ketorolac Tromethamine 15 mg 02/08/24 07:50 02/08/24 08:02 Ketorolac 30mg/Ml Vial IV 02/08/24 07:51 15 mg ONCE ONE Administration Ondansetron HCl 4 mg 02/08/24 07:50 02/08/24 08:02 Ondansetron 4mg/2ml Vial IV 02/08/24 07:51 4 mg ONCE ONE Administration ORDERS Category Date Time Status CXR 2 view (NOT portable) [XR chest 2V] Stat Exams 02/08/24 07:50 Taken CBC w/Auto Diff [Complete Blood Count Auto Diff] Stat Lab 02/08/24 07:58 Results CMP [Comprehensive Metabolic Panel] Stat Lab 02/08/24 07:58 Completed HIV (1&2) Antibody Rapid Stat Lab 02/08/24 07:58 Received Hep C Ab with Reflex to RNA Stat Lab 02/08/24 07:58 Received Blood Culture Stat Micro 02/08/24 08:50 Received Medical Decision Narrative: Is a 33-year-old female no relevant medical history presenting with productive cough, body aches. Patient states that she has had 7 or 8 days of cough, turned productive of clear sputum, followed by greenish-brown sputum. Intermittently coughing up dark red blood specks now. Subjective fevers and chills with no objective temperatures measured. States that she has been having bodyaches since yesterday, 02/06 that are made mildly better by acetaminophen. Started having chest wall pain is left-sided, posterolateral. No nausea, vomiting, diarrhea, abdominal pain, or pleuritic/respirophasic chest pain. Patient states that she has had less appetite, but trying to keep fluids down. History obtained with patient. On arrival, patient in no acute distress, but uncomfortable appearing. Intermittently tearful. Lungs without focal adventitious breath sounds. Patient is tachypneic 25 breaths/min or so, as well as tachycardic 100-1 10. Dry mucous membranes. Differential includes bronchitis, pneumonia, dehydration, among others. Less likely to be PE, pneumothorax, ACS, AL. Patient was given fluid bolus, Decadron, Toradol, Zofran. P.o. challenged. Independent interpretation of workup demonstrates leukocytosis of 25,000 with neutrophilia. Nonactionable chemistry other than mild hyponatremia. Patient has lobar pneumonia on chest x-ray. Given 1 L of saline for this. On reevaluation, patient feeling much better, still coughing, feels comfortable going home. I feel this is appropriate. Med sent to pharmacy of choice. Because patient at baseline without signs or symptoms of clinical decompensation, deemed appropriate for discharge. Results were relayed to patient who voiced understanding and were agreeable to outpatient management and follow up. I discussed my clinical impression with patient and answered all questions. At this time, the evidence for any other entities in the differential is insufficient to warrant any further testing or ED observation. This was explained as well. Advisory was given that persistent or worsening symptoms require further evaluation. I confirmed the understanding of this discussion. [employer] G[employer] Card Merchandiser disclaimer Much of this encounter note is an electronic senior clinical research scientist spoken language to printed text. Electronic senior clinical research scientist of the spoken language may permit errors. Although I have reviewed the note, some errors may still exist. Critical Care Critical Care Time Critical Care Time: No
[2024-02-08] MEDS: DEXAMETHASONE 4MG TABLET 10 MG PO (08:09)
[2024-02-08 08:18] LABS: Basophils # 0.1 K/mm3 (0-0.2); Basophils % 0.3 % (0.1-2.0); Eosinophils # 0.1 K/mm3 (0.0-0.4); Eosinophils % 0.4 % (0.1-12.0); Hematocrit 37.1 % (37.0-47.0); Hemoglobin 12.7 g/dL (12.2-16.2); Lymphocytes # 0.7 K/mm3 (0.7-4.5); Lymphocytes % 2.8 % (10-50); Mean Corpuscular HGB Conc 34.1 g/dL (31.8-35.4); Mean Corpuscular Hemoglobin 29.7 pg (27.0-31.2); Mean Platelet Volume 7.8 fl (7.4-10.4); Monocytes # 0.8 K/mm3 (0.1-1.0); Monocytes % 3.5 % (1.7-9.3); Neutrophils # 22.6 K/mm3 (1.8-7.8); Platelet Count 227 K/mm3 (142-424); Red Blood Count 4.26 M/mm3 (4.20-5.40); Red Cell Distribution Width 13.6 % (11.5-17.5); White Blood Count 24.3 K/mm3 (4.8-10.8)
[2024-02-08 08:20] LABS: Chloride 99 mmol/L (98-107)
[2024-02-08 08:21] LABS: Albumin Level 4.4 g/dl (3.5-5.0); Potassium 3.6 mmoL/L (3.5-5.1); Sodium 132 mmol/L (136-145)
[2024-02-08 08:24] LABS: Alanine Aminotransferase 22 U/L (12-78); Albumin/Globulin Ratio 1.5 (1.1-1.8); Alkaline Phosphatase 71 U/L (38-126); Anion Gap 10.6 mEq/L (5-15); Aspartate Amino Transferase 25 U/L (14-36); Bilirubin,Total 1.1 mg/dl (0.2-1.3); Blood Urea Nitrogen 7 mg/dl (7-17); Calcium 9.1 mg/dl (8.4-10.2); Carbon Dioxide 26 mmol/L (22.0-30.0); Creatinine Clearance Estimated 128 mL/min (50-200); Estimated Glomerular Filt Rate 141 ml/min (>60); GFR (African American) 171 ML/MIN (>60); Glucose 120 mg/dl (74-100); Total Protein,Serum 7.4 g/dl (6.3-8.2)
[2024-02-08 08:33] LABS: MANUAL DIFFERENTIAL MANUAL DIFFERENTIAL (MANUAL DIFF)
[2024-02-08] MEDS: CEFTRIAXONE SODIUM 2 GM in 0.9 % SODIUM CHLORIDE 100 ML IV (08:49)
[2024-02-08] MEDS: AZITHROMYCIN 250MG TABLET 500 MG PO (08:50)
[2024-02-08 11:01] LABS: Lymphocytes % 11 % (10-50); Monocytes % 4 % (2-9); Neutrophils % 85 % (42-76); Platelet Estimate Normal; RBC Morphology Normal; Total Cells Counted 100
[2024-02-08 12:12] LABS: HIV (1&2) Antibody Rapid NONREACTIVE (NONREACTIVE)
--- NOTE | 2024-02-08 17:56 | PC.NURSE ---
Attempted to call patient with no answer and no voicemail set up
--- NOTE | 2024-02-09 05:57 | PC.NURSE ---
Attempted to call patient regarding blood cultures with no answer
--- NOTE | 2024-02-09 06:00 | PC.NURSE ---
Pt called back and informed to come back to the hospital due to positive blood cultures Pt verbalized an understanding of these instructions
[2024-02-09 08:21] LABS: HCV Ab Non Reactive (Non Reactive)
--- NOTE | 2024-02-11 15:53 | PC.NURSE ---
Contacted pt about blood culture results, per , pt states that she is feeling better with soa and back pain but the pain has moved to her shoulder, denies any fevers. recommended that pt come to the ER for further evaulation, pt states that she called earlier to her doctor and felt that she was ok to continue her outpt care and fu with her primary care on the as scheduled, discussed with pt about coming back to the ER if she felt that she was worse before the , aware.
== END 2024-02-08 09:34 | disposition home or self-care (01) ==
PROVIDERS: Emergency Provider Emergency Medicine
DX: J18.1 Lobar pneumonia, unspecified organism (principal); M54.50 Low back pain, unspecified; R09.81 Nasal congestion; M79.10 Myalgia, unspecified site; R09.3 Abnormal sputum
CPT/HCPCS: 71046; 80053; 85007; 85025; 85027; 86803; 87040; 87186; 87389; 96361; 96365; 96374; 96375; 99283; J0696; J1885; J2405; J7030; J8540

== ENCOUNTER 2024-02-09 06:31 | Observation (INO) | payer OTHER, SELFPAY ==
[2024-02-09 06:32] VITALS: BP 109/75; PULSE 84; RESP 18; TEMP 36.8; O2SAT 97; BMI 20.3
--- NOTE | 2024-02-09 06:48 | HMH.EDGENADL ---
Discharge Plan Disposition Patient Disposition: Admitted Chief Complaint: Recheck/Abnormal Lab/Rx Prescriptions Prescriptions: No Action promethazine 12.5 mg tablet 12.5 mg PO TID PRN (Reason: allergy symptoms) 5 Days Qty: 15 0RF Rx Instructions: 3 doses during day; last dose no later than 4 hr before bedtime oxycodone-acetaminophen 1 EACH tablet 1 tab PO Q4-6H PRN (Reason: Severe Pain) Qty: 20 0RF cefdinir 300 mg capsule 300 mg PO BID 6 Days Qty: 12 0RF azithromycin 500 mg tablet 500 mg PO DAILY 2 Days Qty: 2 0RF Rx Instructions: start on day 2 of therapy Referrals Follow up/Referrals: Provider,Referral, MD [Primary Care Provider] - See instructions Clinical Impressions Clinical Impression: Lobar pneumonia, Bacteremia due to Streptococcus pneumoniae Print Language Print Language: Irish Discharge ED Provider: Cabrera Xavier General Adult HPI General Chief complaint: Recheck/Abnormal Lab/Rx Stated complaint: follow up Time Seen by Provider: 02/09/24 06:40 History of Present Illness HPI narrative: 33-year-old female presents to the ER after being called back because of positive blood cultures. Patient reports she has been sick with a cough and bodyaches for 7 to 8 days but was having clinical worsening when she was evaluated yesterday by Dr. Dash. My review of her workup demonstrates she had significant leukocytosis and a lobar pneumonia, patient reports that she was given the option of admission versus discharge and chose to be discharged. She reports she has not yet picked up her antibiotics and was going to pick them up this morning to start taking them. Unfortunately less than 24 hours after she was in the ER, her blood cultures were positive for strep pneumoniae. There were attempts to contact the patient late last night when blood culture became positive, however we were not successful in contacting her until early this morning. Patient presents back to the ER stating her symptoms are stable from yesterday, she is still having intermittent fevers and chills as well as sweats. She still has significant cough. She states her pain is currently controlled since she took 1 g of Tylenol approximately 2.5 hours prior to arrival. She reports no new symptoms from yesterday, no nausea, vomiting, abdominal pain, dysuria, hematuria, headache, dizziness, numbness, tingling, weakness. Related Data Previous Rx's ?Medication ?Instructions ?Recorded oxycodone-acetaminophen 5 mg-325 1 tab PO Q4-6H PRN Severe Pain #20 //21 mg tablet tabs promethazine 12.5 mg tablet 12.5 mg PO TID PRN allergy 01/28/23 symptoms 5 days #15 tabs azithromycin 500 mg tablet 500 mg PO DAILY 2 days #2 tabs 02/08/24 cefdinir 300 mg capsule 300 mg PO BID 6 days #12 caps 02/08/24 Allergies Allergy/AdvReac Type Severity Reaction Status Date / Time Penicillins Allergy Intermediate unknown Verified 02/09/24 06:52 Sulfa (Sulfonamide Allergy Hives Verified 02/09/24 06:52 Antibiotics) [facility] Disclaimer: The information contained in this section may have been updated after the patient was seen, as this information can be updated by other users. Social History Smoking Status: Current every day smoker tobacco type: cigarettes packs per day: 1 alcohol intake: never substance use type: denies use current occupational status: unemployed Travel in the last 8 weeks: None household members: significant other housing: house current occupational exposures/hazards: No caffeine: Yes Other Medical History Have you received the Flu Vaccine for this season: No Have you received the Pneumonia Vaccine: No ROS Obtained: Yes Systems reviewed as appropriate & no additional complaints except as documented ROS per HPI Physical Exam General General appearance: alert and in no apparent distress Comment: Ill-appearing but not in distress Head Head exam: atraumatic and normocephalic Eye Eye exam: Present PERRL and EOMI ENT ENT exam: Present mucous membranes moist Neck Neck exam: Present normal inspection and full ROM Chest Chest inspection: Present symmetric chest wall rise Respiratory Respiratory exam: Absent normal lung sounds bilaterally (Rhonchi and rales appreciated, worse in left lower lobe), respiratory distress or stridor Cardiovascular Cardiovascular exam: Present regular rate and normal rhythm Abdominal Exam Abdominal exam: Present soft; Absent distention or tenderness Extremities Exam Extremities exam: Present full ROM Neurological Exam Neurological exam: Present alert and oriented X3; Absent motor sensory deficit Psychiatric Psychiatric exam: Present normal affect and normal mood Skin Skin exam: Present warm and dry Medical Decision Making Medical Records Medical records reviewed: Yes I reviewed the patient's medical records. Screening: Per USPSTF and CDC recommendations, given the prevalence of disease in our region, it is our hospital?s policy to screen for HIV and viral Hepatitis for all patients aged 18 and over and those with ongoing risk factors. MR Comment: See HPI Matthias Inquiry Pt receiving controlled substance: No Orders (Tests/Meds): ORDERS Category Date Time Status CBC w/Auto Diff [Complete Blood Count Auto Diff] Stat Lab 02/09/24 06:40 Ordered CMP [Comprehensive Metabolic Panel] Stat Lab 02/09/24 06:40 Ordered Lactic Acid Stat Lab 02/09/24 06:40 Ordered PT INR [Prothrombin Time INR] Stat Lab 02/09/24 06:40 Ordered Blood Culture Stat Micro 02/09/24 06:40 Ordered VBG [Venous Blood Gas] Stat RT 02/09/24 06:40 Ordered Medical Decision Narrative: In summary, this 33-year-old female presents to the emergency department today with persistent cough, fevers, positive blood cultures. On initial evaluation patient is hemodynamically stable and afebrile however patient's blood pressure is a bit low at 109/75 on arrival. Pulmonary exam notable for rhonchi and rales worse in the left lower lobe. Remainder of exam overall reassuring, patient has brisk capillary refill, GCS 15, benign abdomen. Differential diagnosis includes but is not limited to lobar pneumonia, bacteremia, sepsis, dehydration, kidney dysfunction, electrolyte abnormality. Since patient has a known diagnosis and presented back with symptoms stable from her evaluation yesterday, I do not believe broad workup is indicated and while I would normally consider ACS, PE, etc. when the patient has chest pain, I do not have high concerns for these in this particular clinical setting. Based on these concerns, I ordered basic serum labs, VBG, lactic, repeat blood cultures. Patient received IV Rocephin yesterday for treatment and this is being administered again today. She received Rocephin last nearly 24 hours ago. She is also receiving IV fluids. Labs were reviewed demonstrate worsening leukocytosis, no anemia, platelets slightly increased, there is neutrophilia consistent with known bacterial infection. Patient has not been adherent with her antibiotic regimen so I am not performing chest x-ray at this time since there are not likely to be significant changes in 24 hours without appropriate antibiotics. Patient requires admission for bacteremia, she is agreeable to this. I contacted the hospitalist and discussed the case with them. Patient will be admitted. Critical Care Critical Care Time Critical Care Time: No
[2024-02-09] MEDS: 0.9 % SODIUM CHLORIDE 1000ML 1,000 ML 999 ML IV (06:50)
[2024-02-09] MEDS: CEFTRIAXONE SODIUM 2 GM in 0.9 % SODIUM CHLORIDE 100 ML IV (06:58)
[2024-02-09 07:01] LABS: Basophils # 0.1 K/mm3 (0-0.2); Basophils % 0.3 % (0.1-2.0); Eosinophils # 0.1 K/mm3 (0.0-0.4); Eosinophils % 0.2 % (0.1-12.0); Hematocrit 38.3 % (37.0-47.0); Hemoglobin 12.9 g/dL (12.2-16.2); Lymphocytes % 7.3 % (10-50); Mean Corpuscular HGB Conc 33.7 g/dL (31.8-35.4); Mean Corpuscular Hemoglobin 30.1 pg (27.0-31.2); Mean Corpuscular Volume 89.3 fl (81-99); Mean Platelet Volume 7.8 fl (7.4-10.4); Monocytes # 1.3 K/mm3 (0.1-1.0); Monocytes % 4.6 % (1.7-9.3); Neutrophils # 24.3 K/mm3 (1.8-7.8); Neutrophils % 87.6 % (37.0-80.0); Platelet Count 335 K/mm3 (142-424); Red Blood Count 4.28 M/mm3 (4.20-5.40); Red Cell Distribution Width 13.6 % (11.5-17.5); White Blood Count 27.8 K/mm3 (4.8-10.8)
[2024-02-09 07:04] LABS: MANUAL DIFFERENTIAL MANUAL DIFFERENTIAL (MANUAL DIFF)
[2024-02-09 07:08] LABS: Albumin Level 4.5 g/dl (3.5-5.0); Chloride 104 mmol/L (98-107); Potassium 3.6 mmoL/L (3.5-5.1); Sodium 139 mmol/L (136-145)
[2024-02-09 07:10] LABS: Blood Urea Nitrogen 15 mg/dl (7-17); Creatinine Clearance Estimated 109 mL/min (50-200); Estimated Glomerular Filt Rate 114 ml/min (>60); GFR (African American) 138 ML/MIN (>60)
[2024-02-09 07:11] LABS: Alanine Aminotransferase 22 U/L (12-78); Albumin/Globulin Ratio 1.3 (1.1-1.8); Alkaline Phosphatase 83 U/L (38-126); Anion Gap 11.6 mEq/L (5-15); Aspartate Amino Transferase 25 U/L (14-36); Bilirubin,Total 0.4 mg/dl (0.2-1.3); Calcium 9.4 mg/dl (8.4-10.2); Carbon Dioxide 27 mmol/L (22.0-30.0); Globulin 3.4 g/dL (1.3-3.2); Glucose 78 mg/dl (74-100); Total Protein,Serum 7.9 g/dl (6.3-8.2)
[2024-02-09 07:12] LABS: INR 0.99 (0.9-1.1); Lactic Acid 1.7 mmol/L (0.7-2.1); Prothrombin Time 11.1 seconds (10.1-12.5)
[2024-02-09 07:14] LABS: VBG Base Excess -1.5 mmol/L (-2.4-2.3); VBG HCO3 23.4 mmol/L (23-30); VBG PCO2 39.5 mmol/L (35-51); VBG PH 7.39 mmol/L (7.31-7.41); VBG PO2 31.7 mmol/L (28-40); VBG Total CO2 24.6 mmol/L (23-27)
--- NOTE | 2024-02-09 07:38 | PC.NURSE ---
MANAGER ERP NOTIFIED OF ADMISSION
[2024-02-09 08:00] VITALS: BP 114/67; PULSE 82; RESP 16; TEMP 36.6; O2SAT 100; O2SAT 96; BMI 20.3
--- NOTE | 2024-02-09 08:02 | PC.NURSE ---
called report to Martha CISSE
[2024-02-09 08:20] VITALS: BP 114/67; PULSE 84; RESP 18; TEMP 36.8; O2SAT 100
--- NOTE | 2024-02-09 08:25 | PC.NURSE ---
arrived by w/c from ED
--- NOTE | 2024-02-09 08:58 | HMH.PHAINT1 ---
Pharmacy Intervention Comments: PATIENT NOT TAKING ANY MEDICATIONS AT HOME
[2024-02-09 09:12] LABS: Lymphocytes % 11 % (10-50); Monocytes % 4 % (2-9); Neutrophils % 85 % (42-76); RBC Morphology Normal; Total Cells Counted 100
[2024-02-09 09:13] LABS: Platelet Estimate Normal
[2024-02-09] MEDS: IBUPROFEN 400 MG TABLET PO ×2 (09:17→17:08)
--- NOTE | 2024-02-09 12:08 | EXP.HP ---
History of Present Illness *Admission Date: 02/09/24 *Reason for visit:: Pneumonia, bacteremia *History of present illness: Sulma Mulligan is a 33-year-old female with a medical history significant for chronic tobacco smoker who presents with progressive productive cough. She initially presented to the ED yesterday who provided outpatient antibiotics for community-acquired pneumonia, but unfortunately patient has yet to pick it up. Blood cultures from yesterday revealed strep pneumonia bacteremia. Over the past 9 days, patient states she has been having worsening productive cough, chills, chest soreness, and weakness. CXR yesterday revealed posterior left lower lobe pneumonia. Workup in the ED significant for WBC 27.8. Vital signs stable. Ceftriaxone given in the ED. Case discussed with ED provider and decision was made to admit patient for strep pneumonia bacteremia. [facility] Disclaimer: The information contained in this section may have been updated after the patient was seen, as this information can be updated by other users. Medical History Miscarriage Family History Other Hyperlipidemia Social History (Updated 02/09/24 @ 09:13 by Amy Jones RN) Smoking Status: Current every day smoker tobacco type: cigarettes packs per day: 1 alcohol intake: never substance use type: denies use current occupational status: unemployed Travel in the last 8 weeks: None household members: significant other housing: house current occupational exposures/hazards: No caffeine: Yes Other Medical History Have you received the Flu Vaccine for this season: Yes Have you received the Pneumonia Vaccine: No Meds Home Medications and Allergies New Prescriptions to Start Prescriptions: Allergies Allergy/AdvReac Type Severity Reaction Status Date / Time Penicillins Allergy Intermediate unknown Verified 02/09/24 06:52 Sulfa (Sulfonamide Allergy Hives Verified 02/09/24 06:52 Antibiotics) Exam Data for Last 24 hours Vital signs and Labs for Last 24 Hours: Temp Pulse Resp BP Pulse Ox O2 Del Method 98.2 F 84 18 114/67 96 Room Air 02/09/24 08:20 02/09/24 08:20 02/09/24 08:20 02/09/24 08:20 02/09/24 08:00 02/09/24 11:00 Laboratory Results - last 24 hr 02/09/24 06:40: VBG pH 7.39, VBG pCO2 39.5, VBG pO2 31.7, VBG HCO3 23.4, VBG Total CO2 24.6, VBG O2 Saturation 64.0, VBG Base Excess -1.5, VBG Lactic Acid 2.0 02/09/24 06:45: WBC 27.8 H*, RBC 4.28, Hgb 12.9, Hct 38.3, MCV 89.3, MCH 30.1, MCHC 33.7, RDW 13.6, Plt Count 335 D, MPV 7.8, Neut % (Auto) 87.6 H, Lymph % (Auto) 7.3 L, [place] % (Auto) 4.6, Eos % (Auto) 0.2, Baso % (Auto) 0.3, Neut # (Auto) 24.3 H, Lymph # (Auto) 2.0, [place] # (Auto) 1.3 H, Eos # (Auto) 0.1, Baso # (Auto) 0.1, Total Counted 100, Neutrophils % (Manual) 85 H, Lymphocytes % (Manual) 11, Monocytes % (Manual) 4, Platelet Estimate Normal, RBC Morphology Normal, PT 11.1, INR 0.99, Sodium 139, Potassium 3.6, Chloride 104, Carbon Dioxide 27, Anion Gap 11.6, BUN 15 D, Creatinine 0.60, Estimated Creat Clear 109, Estimated GFR 114, Est GFR ( Amer) 138, Glucose 78 D, Lactate 1.7, Calcium 9.4, Total Bilirubin 0.4, AST 25, ALT 22, Alkaline Phosphatase 83, Total Protein 7.9, Albumin 4.5, Globulin 3.4 H, Albumin/Globulin Ratio 1.3 I & O for Last 24 hours: Intake & Output 02/06/24 02/07/24 02/08/24 02/09/24 23:59 23:59 23:59 23:59 Weight 52.163 kg Constitutional Constitutional: no acute distress *Routine HEENT Exam Head: Present normocephalic Eye: Present EOMI and PERRL ENT: Present mucous membranes moist *Routine Neck Exam Neck: Present supple; Absent lymphadenopathy *Routine Respiratory Exam Respiratory: Present CTA bilaterally *Routine Cardiovascular Exam Cardiovascular: Present RRR *Routine Abdominal Exam Abdominal: Present soft and normoactive bowel sounds; Absent tenderness *Routine Rectal Exam Rectal:: deferred *Routine Genitalia Exam Genitalia:: deferred *Routine Extremities Exam Extremities: Absent cyanosis, clubbing or edema *Routine Skin Exam Skin: Present warm; Absent rash *Routine Neurological Exam Neurological: Present alert and oriented X3 Assessment and Plan *Assessment and plan (1) Bacteremia due to Streptococcus pneumoniae: Status: Acute Category: Medical Code(s): R78.81 - Bacteremia; B95.3 - Streptococcus pneumoniae as the cause of diseases classified elsewhere (2) Lobar pneumonia: Status: Acute Category: Medical Code(s): J18.1 - Lobar pneumonia, unspecified organism Plan Sulma Mulligan is a 33-year-old female with a medical history significant for chronic tobacco smoker who presents with progressive productive cough. She initially presented to the ED yesterday who provided outpatient antibiotics for community-acquired pneumonia, but unfortunately patient has yet to pick it up. Blood cultures from yesterday revealed strep pneumonia bacteremia. Over the past 9 days, patient states she has been having worsening productive cough, chills, chest soreness, and weakness. CXR yesterday revealed posterior left lower lobe pneumonia. Workup in the ED significant for WBC 27.8. Vital signs stable. Ceftriaxone given in the ED. Case discussed with ED provider and decision was made to admit patient for strep pneumonia bacteremia. #Community-acquired pneumonia #Strep pneumonia bacteremia ? 1 out of 2 bottles grew strep pneumonia on 02/08/2024. ? CXR yesterday revealed posterior left lower lobe pneumonia. ? WBC 27.8 today. No signs of sepsis. ? IV ceftriaxone day 1. ? Follow-up repeat blood cultures. ? Follow-up sputum cultures. #Chronic tobacco smoking ? Nicotine patch daily. Full code Lovenox 40
[2024-02-09] MEDS: ACETAMINOPHEN 325MG TAB 650 MG PO ×2 (15:08→20:03)
[2024-02-09 16:00] VITALS: BP 98/59; PULSE 78; RESP 16; TEMP 36.6; O2SAT 99
--- NOTE | 2024-02-09 17:02 | PC.NURSE ---
PT IS RESTING IN BED. ALERT AND ORIENTED X4. EATING AND DRINKING WELL. MEDICATED PER MAR FOR LOWER BACK PAIN. LUNG SOUNDS CLEAR WITH FEW CRACKLES (LEFT BASE). ABDOMEN SOFT/NON TENDER WITH ACTIVE BOWEL SOUNDS. AMBULATES TO THE BATHROOM. VSS. WILL CONTINUE TO MONITOR.
[2024-02-09 20:00] VITALS: BP 102/68; PULSE 85; RESP 20; TEMP 36.4; O2SAT 100
[2024-02-09 20:09] VITALS: PULSE 78; RESP 16
[2024-02-10] VITALS: BP 104/61; PULSE 74; RESP 16; TEMP 36.5; O2SAT 98
[2024-02-10] MEDS: ACETAMINOPHEN 325MG TAB 650 MG PO ×2 (00:25→09:02)
[2024-02-10 03:57] VITALS: BP 100/60; PULSE 74; RESP 16; TEMP 36.6; O2SAT 98
[2024-02-10 03:58] VITALS: BMI 20.5
[2024-02-10] MEDS: CEFTRIAXONE SODIUM 2 GM in 0.9 % SODIUM CHLORIDE 100 ML IV (06:46)
[2024-02-10 06:48] LABS: Basophils % 0.4 % (0.1-2.0); Eosinophils # 0.1 K/mm3 (0.0-0.4); Eosinophils % 0.9 % (0.1-12.0); Hematocrit 33.8 % (37.0-47.0); Lymphocytes # 2.3 K/mm3 (0.7-4.5); Lymphocytes % 19.9 % (10-50); Mean Corpuscular HGB Conc 33.7 g/dL (31.8-35.4); Mean Corpuscular Hemoglobin 30.3 pg (27.0-31.2); Mean Corpuscular Volume 89.8 fl (81-99); Mean Platelet Volume 7.9 fl (7.4-10.4); Monocytes # 0.5 K/mm3 (0.1-1.0); Monocytes % 4.4 % (1.7-9.3); Neutrophils # 8.4 K/mm3 (1.8-7.8); Neutrophils % 74.4 % (37.0-80.0); Platelet Count 273 K/mm3 (142-424); Red Blood Count 3.77 M/mm3 (4.20-5.40); Red Cell Distribution Width 13.8 % (11.5-17.5); White Blood Count 11.3 K/mm3 (4.8-10.8)
[2024-02-10 06:58] LABS: Albumin Level 3.4 g/dl (3.5-5.0); Chloride 107 mmol/L (98-107); Potassium 3.8 mmoL/L (3.5-5.1); Sodium 140 mmol/L (136-145)
[2024-02-10 07:01] LABS: Alanine Aminotransferase 26 U/L (12-78); Albumin/Globulin Ratio 1.3 (1.1-1.8); Alkaline Phosphatase 66 U/L (38-126); Anion Gap 7.8 mEq/L (5-15); Aspartate Amino Transferase 32 U/L (14-36); Bilirubin,Total 0.3 mg/dl (0.2-1.3); Blood Urea Nitrogen 12 mg/dl (7-17); Calcium 8.4 mg/dl (8.4-10.2); Carbon Dioxide 29 mmol/L (22.0-30.0); Creatinine Clearance Estimated 132 mL/min (50-200); Estimated Glomerular Filt Rate 141 ml/min (>60); GFR (African American) 171 ML/MIN (>60); Globulin 2.7 g/dL (1.3-3.2); Glucose 83 mg/dl (74-100); Total Protein,Serum 6.1 g/dl (6.3-8.2)
[2024-02-10 07:32] LABS: Hemoglobin 11.3 g/dL (12.2-16.2)
[2024-02-10 08:00] VITALS: BP 111/75; PULSE 78; RESP 19; TEMP 36.6; O2SAT 100
[2024-02-10] MEDS: IBUPROFEN 400 MG TABLET PO (09:03)
--- NOTE | 2024-02-10 10:31 | EXP.DC.SUM ---
General Admission date:: 02/09/24 HPI HPI HPI: Sulma Mulligan is a 33-year-old female with a medical history significant for chronic tobacco smoker who presents with progressive productive cough. She initially presented to the ED yesterday who provided outpatient antibiotics for community-acquired pneumonia, but unfortunately patient has yet to pick it up. Blood cultures from yesterday revealed strep pneumonia bacteremia. Over the past 9 days, patient states she has been having worsening productive cough, chills, chest soreness, and weakness. CXR yesterday revealed posterior left lower lobe pneumonia. Workup in the ED significant for WBC 27.8. Vital signs stable. Ceftriaxone given in the ED. Case discussed with ED provider and decision was made to admit patient for strep pneumonia bacteremia. Hospital Course Hospital Course Hospital Course: Sulma Mulligan is a 33-year-old female with a medical history significant for chronic tobacco smoker who presents with progressive productive cough. She initially presented to the ED yesterday who provided outpatient antibiotics for community-acquired pneumonia, but unfortunately patient has yet to pick it up. Blood cultures from yesterday revealed strep pneumonia bacteremia. Over the past 9 days, patient states she has been having worsening productive cough, chills, chest soreness, and weakness. CXR yesterday revealed posterior left lower lobe pneumonia. Workup in the ED significant for WBC 27.8. Vital signs stable. Ceftriaxone given in the ED. Case discussed with ED provider and decision was made to admit patient for strep pneumonia bacteremia. #Community-acquired pneumonia #Strep pneumonia bacteremia ? 1 out of 2 bottles grew strep pneumonia on 02/08/2024. ? CXR revealed posterior left lower lobe pneumonia. ? WBC 27.8 today?improved to 11.3 with IV ceftriaxone. ? Clinically improved with IV ceftriaxone for 2 days. ? Repeat blood cultures were negative. ? Remained stable on room air, vital signs stable. ? Discharged with cefdinir for 8 more days for strep bacteremia. ? Will follow-up with PCP within 1 week. #Chronic tobacco smoking ? Provide nicotine patch daily. Exam Data for Last 24 hours Vital signs and Labs for Last 24 Hours: Temp Pulse Resp BP Pulse Ox O2 Del Method 97.8 F 78 19 111/75 100 Room Air 02/10/24 08:00 02/10/24 08:00 02/10/24 08:00 02/10/24 08:00 02/10/24 08:00 02/10/24 09:00 Laboratory Results - last 24 hr 02/10/24 05:58: WBC 11.3 H D, RBC 3.77 L, Hgb 11.3 L D, Hct 33.8 L, MCV 89.8, MCH 30.3, MCHC 33.7, RDW 13.8, Plt Count 273, MPV 7.9, Neut % (Auto) 74.4, Lymph % (Auto) 19.9, [place] % (Auto) 4.4, Eos % (Auto) 0.9, Baso % (Auto) 0.4, Neut # (Auto) 8.4 H, Lymph # (Auto) 2.3, [place] # (Auto) 0.5, Eos # (Auto) 0.1, Baso # (Auto) 0.0, Sodium 140, Potassium 3.8, Chloride 107, Carbon Dioxide 29, Anion Gap 7.8, BUN 12, Creatinine 0.50 L, Estimated Creat Clear 132, Estimated GFR 141, Est GFR ( Amer) 171 D, Glucose 83, Calcium 8.4, Total Bilirubin 0.3, AST 32 D, ALT 26, Alkaline Phosphatase 66, Total Protein 6.1 L, Albumin 3.4 L D, Globulin 2.7, Albumin/Globulin Ratio 1.3 I & O for Last 24 hours: Intake & Output 02/07/24 02/08/24 02/09/24 02/10/24 23:59 23:59 23:59 23:59 Intake Total 120 / 420 720 / 720 Output Total 0 / 0 0 / 0 Balance 120 / 420 720 / 720 Weight 52.163 kg 52.617 kg Microbiology Reports for the Last 24 Hours: Microbiology 02/09/24 06:45 Blood Blood Culture - Preliminary NO GROWTH AFTER 24 HOURS 02/09/24 06:45 Blood Blood Culture - Preliminary NO GROWTH AFTER 24 HOURS 02/09/24 19:23 Sputum - Expectorated Sputum Gram Stain - Final Constitutional Constitutional: no acute distress *Routine HEENT Exam Head: Present normocephalic Eye: Present EOMI and PERRL ENT: Present mucous membranes moist *Routine Neck Exam Neck: Present supple; Absent lymphadenopathy *Routine Respiratory Exam Respiratory: Present CTA bilaterally *Routine Cardiovascular Exam Cardiovascular: Present RRR *Routine Abdominal Exam Abdominal: Present soft and normoactive bowel sounds; Absent tenderness *Routine Extremities Exam Extremities: Absent cyanosis, clubbing or edema *Routine Skin Exam Skin: Present warm; Absent rash *Routine Neurological Exam Neurological: Present alert and oriented X3 Results Data Completed and Pending Labs on day of discharge: Labs from last 24 hours 02/10/24 05:58 WBC 11.3 H D RBC 3.77 L Hgb 11.3 L D Hct 33.8 L MCV 89.8 MCH 30.3 MCHC 33.7 RDW 13.8 Plt Count 273 MPV 7.9 Neut % (Auto) 74.4 Lymph % (Auto) 19.9 [place] % (Auto) 4.4 Eos % (Auto) 0.9 Baso % (Auto) 0.4 Neut # (Auto) 8.4 H Lymph # (Auto) 2.3 [place] # (Auto) 0.5 Eos # (Auto) 0.1 Baso # (Auto) 0.0 Sodium 140 Potassium 3.8 Chloride 107 Carbon Dioxide 29 Anion Gap 7.8 BUN 12 Creatinine 0.50 L Estimated Creat Clear 132 Estimated GFR 141 Est GFR ( Amer) 171 D Glucose 83 Calcium 8.4 Total Bilirubin 0.3 AST 32 D ALT 26 Alkaline Phosphatase 66 Total Protein 6.1 L Albumin 3.4 L D Globulin 2.7 Albumin/Globulin Ratio 1.3 Preliminary micro results at discharge 02/09/24 06:45 Blood Culture - Preliminary Blood NO GROWTH AFTER 24 HOURS 02/09/24 06:45 Blood Culture - Preliminary Blood NO GROWTH AFTER 24 HOURS DS: Diagnosis Discharge Diagnosis (1) Bacteremia due to Streptococcus pneumoniae: Status: Acute Code(s): R78.81 - Bacteremia; B95.3 - Streptococcus pneumoniae as the cause of diseases classified elsewhere (2) Lobar pneumonia: Status: Acute Code(s): J18.1 - Lobar pneumonia, unspecified organism Meds Home Medications and Allergies Home Medications ?Medication ?Instructions ?Recorded ?Confirmed ?Type cefdinir 300 mg capsule 300 mg PO BID 8 days #16 caps 02/10/24 Rx New Prescriptions to Start Prescriptions: cefdinir Ehsan Henley Allergies Allergy/AdvReac Type Severity Reaction Status Date / Time Penicillins Allergy Intermediate unknown Verified 02/09/24 06:52 Sulfa (Sulfonamide Allergy Hives Verified 02/09/24 06:52 Antibiotics) Discharge Plan Disposition Patient Disposition: Home, Self-Care Condition: Good Follow up Plan Follow up with: Aubree Adler APRN [Primary Care Provider] - 02/21/24 10:30 am Prescriptions/Medication Reconciliation: New cefdinir 300 mg capsule 300 mg PO BID 8 Days Qty: 16 0RF Problem Reconciliation Problems Reviewed?: Yes Patient Discharge Instructions Patient Instructions: DI for Pneumonia -- Adult, DI for Bacteremia-Adult Print Language: A[place]i Providers Primary Care Provider: Aubree Adler Admit Provider: Ehsan Henley Attending Provider: Ehsan Henley
--- NOTE | 2024-02-11 10:49 | SW/DCPLANNER ---
Spoke with patient on the phone. Patient stated that she is doing okay other than having pain up in her shoulder at night when she is trying to sleep. Patient spoke with Ariane nurse in . Patients medicine was filled and brought to her bedside before she left. Patient stated that she has no other concerns or questions besides the pain in her shoulder. Francisca Harrison
== END 2024-02-10 12:49 | disposition home or self-care (01) ==
LOC: ER 07:02 → 2ND 08:01
PROVIDERS: Admitting Provider Student in an Organized Health Care Education/Training Program; Emergency Provider Emergency Medicine; PCP Nurse Practitioner Family; Visit Provider Student in an Organized Health Care Education/Training Program
DX: R78.81 Bacteremia (principal); J18.1 Lobar pneumonia, unspecified organism; F17.210 Nicotine dependence, cigarettes, uncomplicated; B95.3 Streptococcus pneumoniae as the cause of diseases classified elsewhere
CPT/HCPCS: 36415; 80053; 82803; 83605; 85007; 85025; 85027; 85610; 87040; 87070; 87205; 99285; G0378; J0696; J7030

== ENCOUNTER 2024-02-22 08:19 | Outpatient (CLI) | payer OTHER, SELFPAY ==
[2024-02-22 08:25] LABS: Microscopic, Urine URINE MICROSCOPIC (MICROSCOPIC)
[2024-02-22 08:57] LABS: Basophils # 0.1 K/mm3 (0-0.2); Basophils % 1.1 % (0.1-2.0); Eosinophils # 0.1 K/mm3 (0.0-0.4); Eosinophils % 1.6 % (0.1-12.0); Hematocrit 36.6 % (37.0-47.0); Hemoglobin 11.9 g/dL (12.2-16.2); Lymphocytes # 1.8 K/mm3 (0.7-4.5); Lymphocytes % 32.3 % (10-50); Mean Corpuscular HGB Conc 32.6 g/dL (31.8-35.4); Mean Corpuscular Hemoglobin 29.4 pg (27.0-31.2); Mean Corpuscular Volume 90.1 fl (81-99); Monocytes # 0.4 K/mm3 (0.1-1.0); Monocytes % 6.7 % (1.7-9.3); Neutrophils # 3.2 K/mm3 (1.8-7.8); Neutrophils % 58.4 % (37.0-80.0); Platelet Count 355 K/mm3 (142-424); Red Blood Count 4.06 M/mm3 (4.20-5.40); Red Cell Distribution Width 14.1 % (11.5-17.5); White Blood Count 5.6 K/mm3 (4.8-10.8)
[2024-02-22 10:05] LABS: Cholesterol 154 mg/dl (140-200); HDL Cholesterol 51 mg/dl (40-60); Triglycerides 83 mg/dl (30-150); VLDL Cholesterol 17 mg/dL (0-40)
[2024-02-22 10:19] LABS: Direct LDL Cholesterol 79.27 mg/dL (100-129)
[2024-02-22 10:23] LABS: 25-OH Vitamin D, Total 31.4 ng/mL (30-100)
[2024-02-22 10:32] LABS: Free T4 (Free Thyroxine) 0.71 ng/dl (0.78-2.19)
[2024-02-22 10:36] LABS: Thyroid Stimulating Hormone 0.55 uIU/mL (0.465-4.68)
[2024-02-22 11:12] LABS: Vitamin B12 602 pg/mL (239-931)
[2024-02-22 15:29] LABS: Iron 125 ug/dL (37-170)
[2024-02-22 15:50] LABS: Total Iron Binding Capacity 423 ug/dL (265-497)
[2024-02-22 16:06] LABS: Ferritin 40.8 ng/ml (6.24-137)
[2024-02-23 23:14] LABS: Bilirubin,Urine Negative (Negative); Blood, Urine Negative (Negative); Color,Urine YELLOW (Yellow); Glucose,Urine (UA) Negative (Negative); Ketones,Urine Negative (Negative); Leukocyte Esterase,Urine Negative (Negative); Nitrate,Urine Negative (Negative); Protein,Urine Negative (Negative); Specific Gravity, Urine 1.025 (1.005-1.030); Urobilinogen,Urine 0.2 EU/dl (0.2)
[2024-02-23 23:16] LABS: Appearance,Urine Slightly Cloudy (Clear)
[2024-02-24 00:01] LABS: Bacteria,Urine 1+ /lpf; WBC,Urine Occasional #/hpf (0-3)
[2024-02-24 00:02] LABS: Amorphous Sediment,Urine 2+ /lpf
== END 2024-02-22 23:59 | disposition home or self-care (01) ==
LOC: LAB 08:21
PROVIDERS: PCP Nurse Practitioner Family; Visit Provider Nurse Practitioner Family
DX: R53.83 Other fatigue (principal); R63.6 Underweight; Z13.1 Encounter for screening for diabetes mellitus; D64.9 Anemia, unspecified; J18.1 Lobar pneumonia, unspecified organism; Z13.220 Encounter for screening for lipoid disorders; Z72.0 Tobacco use
CPT/HCPCS: 36415; 80061; 81001; 82306; 82607; 82728; 82746; 83036; 83540; 83550; 84439; 84443; 85025; 87086